=== PATIENT | male | born 1960 | race Caucasian/White ===

== ENCOUNTER 2024-03-23 10:18 | Outpatient (AMB) | payer MEDICARE, MEDICAID, SELFPAY ==
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
--- OUTSIDE RECORDS SUMMARY | 2024-03-23 10:21 | XMS_ITS | Data Portability ---
Author Organization [facility] Address [address] [facility] [place] [address] Care Team Providers Care Fundraising Specialist Name Role Phone REGINALD ARZATE Primary Care Provider [phone] REGINALD ARZATE Referring Provider Assessment No assessment [...] By Organization Details Last Modified Time 02/13/[id number] scan also dean ws a potential median lobe of the prostate [...] an off cystoscopy we will schedule him [email or web address] Not available 02/13/2024 10:49:46 02/27/2024 [id number] You have had an Urgent Care Visit which is designed to address acute issues. It does not represent an exhaustive evaluation of your symptom complex, but is an attempt to treat and manage the most likely cause of your most pressing physical issues. If you are not improved in the time frame that we have discussed, please seek the advice of your PCP who is in a position to order further diagnostic testing and possible specialist consultation. If you are rapidly deteriorating despite the treatment recommendations please do not wait to see your PCP and do proceed to the closest ER where a comprehensive evaluation including consideration to lab and other diagnostic testing as well as consultation is more expeditiously accessible. If you were prescribed medications they have been directly submitted to your pharmacy on file. Please make sure you finish all your medications and if you develop major side effects related to them please do stop taking them and check with your PCP to see if you need to get an alternative medication. If labs or xray were ordered, we will call you with the results if there is any change to your plan of care. You have had an Urgent Care Visit which is designed to address acute issues. It does not represent an exhaustive evaluation of your symptom complex, but is an attempt to treat and manage the most likely cause of your most pressing physical issues. [email or web address] Not available 02/27/2024 13:19:47 Reason for Referral None Reported. Medical Equipment None Reported. Allergies Allergen ID Allergen Name Allergen Category Reaction Reaction Severity Criticality Documentation Date Start Date Code Code System Note Provider Name and Address Organization Details Recorded Time 162813 trazodone medicatio n swelling Not available Not available 02/13/2024 42051 RxNorm priap ism Marc will [facility] 10:34:38 Medications Name Sig Start Date Stop [...] Updated DateTime 4 185.42 cm 30.9 kg/m2 514691. 61 g 73 /min 120 mm[Hg] 74 mm[Hg] Marc vaca [facility] 4 10:33:27 Date Recorded Body height Heart rate Body temperature Oxygen saturation Oxygen saturation in Arterial blood by Pulse oximetry Systolic blood pressure Diastolic blood pressure Provider Name and Address Organization Details Last Updated DateTime 4 185.42 cm 72 /min 98.8 [degF] 96 % 96 % 138 mm[Hg] 70 mm[Hg] Marlyn Davis [facility] 4 13:02:50 Social History None recorded. Functional Status None recorded. Mental Status None recorded. Family History Nothing Reported. Medical History No medical history recorded. Past Encounters Encounter ID Performer Location Encounter Start Date Encounter Closed Date Diagnosis/Indication Diagnosis SNOMED-CT Code Diagnosis ICD10 Code [id number] Severo Baumann MD [facility] [address] [place] [address] 02/13/2024 10:21:35 02/13/2024 11:29:12 Ureteric stone 76571503 N20.1 Lesion of urinary bladder 257924973 N32.9 [id number] Ele Tipton MD [facility] [address] [place] [address] 02/27/2024 12:53:55 02/27/2024 13:23:30 Paresthesia of lower extremity 309058901 R20.2 Health Concerns Section Related Observation LastModified by Organization Detai ls LastModified Time None Recorded Concern Status LastModified by Organization Details LastModified Time None Recorded Advance Directives Directive None Recorded Payers Encounter Date Sequence Insurance Name Policy Number Policy Carter Covered Member ID Carter Member ID Guarantor Name 02/13/2024 2 [place] [facility] Peter Jacksonman [id number] Peter Lewis 02/13/2024 1 MEDICARE B-[place]: [facility] Cyrus Jacob Lewis [id number] Peter Lewis 02/27/2024 2 [place] [facility] Peter Jacksonman [id number] Peter Lewis 02/27/2024 1 MED[place]ARE [place]: [facility] Cyrus Jacob Lewis [id number] [facility] Notes Date Note Type Note Provider Name and Address Organization Details Recorded Time 02/13/2024 text/html This is a 64-year-old white male who went to this emergency room at [facility] and had a CT scan performed for [...] alpha-darío secondary to dizziness. Severo Baumann MD [address] [place] [address], [phone], [facility] 02/13/2024 10:50:06 02/27/2024 text/html 64 yr old male present with numbness in both legs couple of years patient presents with numbness in both legs - states chronic for a couple of years. Pt is here because he wants blood pressures done on his legs. States that he has all sorts of vascular problems, and feels like his Pcp is fluffing him off because they havent done any testing. States recently had an ultrasound of his abdominal aortic aneurysm and they didnt check his legs. Ele Tipton MD [address] [place] [address], [phone], [facility] 02/28/2024 22:43:57
--- OUTSIDE RECORDS SUMMARY | 2024-03-23 10:21 | XMS_ITS | Continuity of Care Document ---
[facility] Organization [facility] Address [address] [place] [address] Care Team Providers Care County Director Name Role Phone REGINALD ARZATE Primary Care Provider [phone] REGINALD ARZATE Referring Provider Assessment No assessment [...] Modified By Organization Details Last Modified Time 02/27/2024 [id number] You have had an Urgent Care Visit [...] Name and Address Organization Details Recorded Time [id number] trazodone medicatio n swelling Not available Not available 02/13/2024 97773 RxNorm priap ism Marc will [facility] 10:34:38 Medications Name Sig Start Date Stop [...] ot Available Vitals Date Recorded Body height Heart rate Body temperature Oxygen saturation Oxygen saturation in Arterial blood by Pulse oximetry Systolic blood pressure Diastolic blood pressure Provider Name and Address Organization Details Last Updated DateTime 4 185.42 cm 72 /min 98.8 [degF] 96 % 96 % 138 mm[Hg] 70 mm[Hg] Marlyn Pabonclaudine [facility] 13:02:50 Social History None recorded. Functional Status None recorded. Mental Status None recorded. Family History Nothing Reported. Medical History No medical history recorded. Past Encounters Encounter ID Performer Location Encounter Start Date Encounter Closed Date Diagnosis/Indication Diagnosis SNOMED-CT Code Diagnosis ICD10 Code [id number] Severo Baumann MD [facility] [address] [place] [address] 02/13/2024 10:21:35 02/13/2024 11:29:12 Ureteric stone 57350232 N20.1 Lesion of urinary bladder 322130525 N32.9 [id number] Ele Tipton MD [facility] [address] [place] [address] 02/27/2024 12:53:55 02/27/2024 13:23:30 Paresthesia of lower extremity 717760904 R20.2 Health Concerns Section Related Observation LastModified by Organization Detai ls LastModified Time None Recorded Concern Status LastModified by Organization Details LastModified Time None Recorded Payers Encounter Date Sequence Insurance Name Policy Number Policy Carter Covered Member ID Carter Member ID Guarantor Name 02/27/2024 2 [place] Peter Lewis [id number] Peter Lewis 02/27/2024 1 MEDICARE B[place]: [employer] Cyrus Lewis [id number] Peter Lewis Notes Date Note Type Note Provider Name and Address Organization Details Recorded Time 02/27/2024 text/html 64 yr old male present [...] didnt check his legs. Ele Tipton MD [address] [place] [address], [phone], [facility] 02/28/2024 22:43:57
--- NOTE | 2024-03-23 10:24 | MHC.OFFVIS ---
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 Pt states that he had a recent CTA Abd/pelvis 12/22/23 @ [facility] (for kidney stones and there was some new vascular findings). Pt states that he has bilateral LE numbness and weakness, gets loss of balance. Pt states that is w/ or w/o ambulation. 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 He appears that he is lost about his generalized care. Apparently he had endovascular aneurysm repair performed at [facility] several years prior. He has been complaining about lower extremity pain and discomfort and was unclear what the etiology of that is. Upon discussion with him he does have a prior history adrenal cancer. In addition he has history of spinal stenosis. He most recently had undergone CT scan at [facility] on 12/22/2023. He now presents to us for vascular evaluation. Of note he smokes between 1-2 packs per day. He is not a diabetic. He is being maintained on aspirin statin and Coumadin. [facility] Social History (Updated 03/23/24 @ 10:34 by RA Hartman) Cigarettes Per Day: 20 Review of Systems Const All systems reviewed & are unremarkable except as noted in HPI and below Reports no additional complaints ENT Reports Normal hearing present Card Denies chest pain, Denies chest pain at rest, Denies chest pain with activity and Denies pedal edema Resp Denies cough GI Denies abdominal pain Musc Denies abnormal gait, Denies muscle cramps and Denies radiating pain into limb Skin/Breast Denies skin ulcer and Denies wounds Neuro Reports Normal hearing present and Denies abnormal gait Psych Reports no additional complaints Physical Exam Const General: cooperative, healthy appearing and comfortable Orientation/consciousness: oriented to person, oriented to place and oriented to time HEENT Head: Yes normal to inspection Neck Neck: Yes normal visual inspection Carotids: no bruits Chest Chest palpation & inspection: normal inspection of the chest Resp Effort & Inspection: normal respiratory effort and able to speak in complete sentences Auscultation: clear to auscultation bilaterally, no crackles, no rales, no rhonchi and no wheezes Cardio Other: Faintly palpable dorsalis pedis pulse Rate: regular rate Rhythm: regular rhythm Heart sounds: S1 normal heart sound present and S2 normal heart sound present Bruits: no carotid bruits Peripheral pulses: Peripheral pulses 2+ throughout GI Inspection: Yes normal to inspection Skin Wounds: no wounds Hair: normal Neuro General: oriented to person, oriented to place and oriented to time Cranial nerves: Yes CN's II-XII intact bilaterally and Yes Normal hearing present Cognition (Neuro): normal cognition Motor exam (neuro): 5/5 motor strength present throughout Extrem Other: venous exam: No significant superficial varicosities or spider telangiectasias, minimal edema General: No clubbing, No cyanosis and No edema Psych Appearance: grossly normal Mental Status: mental status grossly normal Speech and movement: Normal speech and movement present Assessment & Plan Assessment & Plan (1) AAA (abdominal aortic aneurysm): Comment: Endovascular repair at [facility] by Dr. Joseline Mancera Code(s): I71.40 - Abdominal aortic aneurysm, without rupture, unspecified Category: Medical Qualifiers: Abdominal aorta location: infrarenal aorta Presence of rupture: without rupture Qualified Code(s): I71.43 - Infrarenal abdominal aortic aneurysm, without rupture Plan: Patient will require annual surveillance regarding this. It is unclear if he is going to get follow-up at [facility] or he would like to transfer his care here. I will readdress this at the next visit. Of note CT scan from 12/22/2023 demonstrates appropriate placement on written report. We did discuss risk factor modification in particular smoking cessation. (2) PAD (peripheral artery disease): Code(s): I73.9 - Peripheral vascular disease, unspecified Category: Medical Plan: Unclear etiology of lower extremity pain. It does not appear to be vascular in nature as he does have faintly palpable pulses. I did take the liberty of ordering noninvasive arterial testing to rule that out. Does have some hip pain in particular joint pain and may be an element of arthritis in addition he does have a history of spinal stenosis that may be contributing to this. This was all explained in detail with the patient. Once again we have taken the liberty of ordering noninvasive arterial testing and he will follow up with us after that. Thank you for allowing us to assist in his care. If there are any questions or concerns please do not hesitate to contact us. Orders: Orders US arterial duplex LE BI 1 Week I73.9 - Peripheral vascular disease, unspecified Coding Level of Care Code New Pt Level 4 (34972) Diagnoses Infrarenal abdominal aortic aneurysm (AAA) without rupture I71.43 Abdominal aorta location: infrarenal aorta Presence of rupture: without rupture PAD (peripheral artery disease) I73.9
== END 2024-03-23 11:15 | disposition home or self-care (01) ==
PROVIDERS: Visit Provider Surgery Vascular Surgery
DX: I71.43 Infrarenal abdominal aortic aneurysm, without rupture (principal); I73.9 Peripheral vascular disease, unspecified
CPT/HCPCS: 99204

== ENCOUNTER → 2024-03-23 10:18 | Outpatient (BNVA) | payer MEDICARE, MEDICAID, SELFPAY | PROVIDERS: Visit Provider Surgery Vascular Surgery | DX: I71.43 Infrarenal abdominal aortic aneurysm, without rupture (principal); I73.9 Peripheral vascular disease, unspecified | CPT/HCPCS: 99202 ==

== ENCOUNTER → 2024-05-06 12:57 | Outpatient (BNV) | payer MEDICARE, MEDICAID, SELFPAY | PROVIDERS: Visit Provider Radiology Diagnostic Radiology | DX: I73.9 Peripheral vascular disease, unspecified (principal) | CPT/HCPCS: 93922; 93925 ==

== ENCOUNTER 2024-06-01 11:19 | Outpatient (AMB) | payer MEDICARE, MEDICAID, SELFPAY ==
--- NOTE | 2024-06-01 11:17 | A.OFFVIS_ITS ---
Intake Visit Reasons: follow up Arterial US 05/06/24 Intake Note: follow up Arterial US 05/06/24. Pt states he has groin pain where he has hx of graft placement. Services Account Manager Required: No Accompanied by: Self / Same As Patient Allergies trazodone Allergy (Intermediate, Verified 06/01/24 11:26) Unknown HPI HPI follow up Arterial US 05/06/24: Details: Very complex 64-year-old gentleman presents for follow-up regarding peripheral vascular disease. He had originally undergone endovascular aortic aneurysm at [facility]. This has been several years prior and he had been following up regarding that with them. Most recently he had more inguinal pain. Upon further discussion with him he reports that it was more so the hip and joint pain that has been a source of discomfort for him. Was concerned that it was peripheral vascular disease and was concerning for where the stent went down to into his groin. He is able to ambulate distances without any difficulty. He has undergone noninvasive arterial testing. He now presents for follow-up with noninvasive testing. He is being maintained on aspirin and high-dose statin. [facility] Social History Cigarettes Per Day: 20 Review of Systems Const All systems reviewed & are unremarkable except as noted in HPI and below Reports no additional complaints ENT Reports Normal hearing present Card Denies chest pain, Denies chest pain at rest, Denies chest pain with activity and Denies pedal edema Resp Denies cough GI Denies abdominal pain Musc Denies abnormal gait, Denies muscle cramps and Denies radiating pain into limb Skin/Breast Denies skin ulcer and Denies wounds Neuro Reports Normal hearing present and Denies abnormal gait Psych Reports no additional complaints Physical Exam Const General: cooperative, healthy appearing and comfortable Orientation/consciousness: oriented to person, oriented to place and oriented to time HEENT Head: Yes normal to inspection Neck Neck: Yes normal visual inspection Carotids: no bruits Chest Chest palpation & inspection: normal inspection of the chest Resp Effort & Inspection: normal respiratory effort and able to speak in complete sentences Auscultation: clear to auscultation bilaterally, no crackles, no rales, no rhonchi and no wheezes Cardio Rate: regular rate Rhythm: regular rhythm Heart sounds: S1 normal heart sound present and S2 normal heart sound present Bruits: no carotid bruits Peripheral pulses: Peripheral pulses 2+ throughout GI Inspection: Yes normal to inspection Skin Wounds: no wounds Hair: normal Neuro General: oriented to person, oriented to place and oriented to time Cranial nerves: Yes CN's II-XII intact bilaterally and Yes Normal hearing present Cognition (Neuro): normal cognition Motor exam (neuro): 5/5 motor strength present throughout Extrem Other: venous exam: No significant superficial varicosities or spider telangiectasias, minimal edema General: No clubbing, No cyanosis and No edema Psych Appearance: grossly normal Mental Status: mental status grossly normal Speech and movement: Normal speech and movement present Results Reviewed Results Reviewed: Noninvasive testing dated 05/06/2024 demonstrates DYAN on the right of 1.03 and on the left of 0.86. Assessment & Plan Assessment & Plan (1) AAA (abdominal aortic aneurysm): Comment: Endovascular repair at [facility] by Dr. Joseline Mancera Code(s): I71.40 - Abdominal aortic aneurysm, without rupture, unspecified Category: Medical Qualifiers: Abdominal aorta location: infrarenal aorta Presence of rupture: without rupture Qualified Code(s): I71.43 - Infrarenal abdominal aortic aneurysm, without rupture Plan: Follow-up at [facility] (2) PAD (peripheral artery disease): Code(s): I73.9 - Peripheral vascular disease, unspecified Category: Medical Plan: In terms of peripheral vascular disease it appears to be stable. I did provide a fair amount of reassurance that his arterial status was within normal limits. In addition I did education about the hip and groin pain and the possibility that this may be more arthritic in nature. I also provided education regarding his aortic aneurysm and how far the limbs of the stent go down. I did explain to him that they do not go down to the groin and that would not be the source of his issues. He did appreciate my explanations and did seem to comprehend what I told him. In terms of peripheral vascular standpoint he is stable and will follow up with us on an as-needed basis as he does follow-up with [facility] regarding his aortic aneurysm. Thank you for allowing us to assist in his care. If there are any questions or concerns please do not hesitate to contact us. Coding Level of Care Code Est Pt Level 4 (73514) Diagnoses Infrarenal abdominal aortic aneurysm (AAA) without rupture I71.43 Abdominal aorta location: infrarenal aorta Presence of rupture: without rupture PAD (peripheral artery disease) I73.9
--- OUTSIDE RECORDS SUMMARY | 2024-06-01 13:51 | XMS_ITS | Encounter Summary ---
Author Organization [facility] Address [address] [place] [address] Care Team Providers Care Automatic Shirring Machine Operator Name Role Phone Jolanta Morrell MD Primary Care Provider +1- [phone] Encounter Details Date Type Department Care Team (Late st Contact Info) Description 11/21/2016 Orders Only [facility] [address] [address] Jolanta Morrell MD [address] [place] [address] Social History Tobacco Use Types Packs/Day Years Used Date Smoking Tobacco: Never Assessed Sex and Gender Information Value Date Recorded Sex Assigned at Male 05/15/2023 10:48 AM EST Legal Sex Male 5:53 PM EDT Gender Identity Not on file Sexual Orientation Not on file documented as of this encounter Plan of Treatment Upcoming Encounters Date Type Department Care Team (Late st Contact Info) Description 08/04/2024 1:00 PM EDT Appointment [facility] Otolaryngology Clinic [address] [place] [address] Subcontract Administrator: Kal Alicea PA [address] [place] [address] 09/21/2024 1:00 PM EDT Follow-Up [facility] Anticoagulation Clinic [address] [place] [address] Subcontract Administrator: Lisy Varmat, ROLL CUTTER [address] [place] [address] 02/24/2025 1:00 PM EST Appointment [facility] Vascular Lab [address] [place] [address] 02/24/2025 2:00 PM EST Follow-Up [facility] Building Vascular Surgery [address] [place] [address] Subcontract Administrator: Joseline May MD [address] [place] [address] 03/29/2025 10:00 AM EST Follow-Up [facility] Eye [address] [address] Sebastian Oneal MD [address] [place] [address] documented as of this encounter Visit Diagnoses Not on filedocumented in this encounter Additional Health Concerns Infection Onset Date Last Indicated Resolved Time COVID-19 - Suspected infection 07/06/2019 07/06/2019 07/07/2019 5:03 PM EDT documented as of this encounter Care Teams Automatic Shirring Machine Operator Relationship Specialty Start Date End Date Jolanta Morrell MD [address] [place] [address] PCP - General Family Medicine 10/28/18 documented as of this encounter
--- OUTSIDE RECORDS SUMMARY | 2024-06-01 13:51 | XMS_ITS | Encounter Summary ---
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 No 02/02/2024 Hunger Vital Sign Answer Date Recorded Within the past 12 months, y ou worried that your food would run out before you got the money to buy more. Never true 02/02/20 24 Within the past 12 months, t he food you bought just didn't last and you didn't have money to get more. Never true 02/02/2024 Transportation Answer Date Recorded In the past 12 months, has l ack of reliable transportation kept you from medical appointments, meetings, work or from getting things needed for daily living? No 02/02/2024 Housing Answer Date Recorded Housing Risk Low 2 02/02/2024 Housing Risk Medium Not on file 02/02/2024 Housing Risk High Not on file 02/02/2024 What is your living situation today? [facility] 02/02/2024 Sex and Gender Information Value Date Recorded Sex Assigned at Male 05/15/2023 10:48 AM EST Legal Sex Male 5:53 PM EDT Gender Identity Not on file Sexual Orientation Not on file Occupation Industry Job Start Date Job End Date retired Not on file Not on file Not on file documented as of this encounter Functional Status * Does this person have serious difficulty walking or climbing stairs? Answer Date of Assessment Author Yes 01/21/2017 12:33 PM EDT documented as of this encounter Plan of Treatment Upcoming Encounters Date Type Department Care Team (Late st Contact Info) Description 08/04/2024 1:00 PM EDT Appointment [facility] Otolaryngology Clinic [address] [place] [address] Plasterer Spot: Kal Alicea PA [address] [place] [address] 09/21/2024 1:00 PM EDT Follow-Up [facility] Anticoagulation Clinic [address] [place] [address] Plasterer Spot: Lisy Varma NP [address] [place] [address] 02/24/2025 1:00 PM EST Appointment [facility] ACC Vascular Lab [address] [place] [address] 02/24/2025 2:00 PM EST Follow-Up [facility] ACC Building Vascular Surgery [address] [place] [address] Plasterer Spot: Joseline May MD [address] [place] [address] 03/29/2025 10:00 AM EST Follow-Up [address] [address] Sebastian Oneal MD [address] [place] [address] documented as of this encounter Visit Diagnoses Diagnosis Paroxysmal atrial fibrillation (HCC)- Primary Atrial fibrillation [facility] (current) use of anticoagulants Long-term (current) use of anticoagulants documented in this encounter Care Teams Stitch Bonding Machine Tender Relationship Specialty Start Date End Date Jolanta Morrell MD [address] [place] [address] PCP - General Family Medicine 10/28/18 documented as of this encounter
--- OUTSIDE RECORDS SUMMARY | 2024-06-01 13:51 | XMS_ITS | Encounter Summary ---
Author Organization [facility] Address [address] [place] [address] Care Team Providers Care Regional Forester Name Role Phone Jolanta Morrell MD Primary Care Provider +1- [phone] Reason for Visit * Reason Comments Med Refill Encounter Details Date Type Department Care Team (Late st Contact Info) Description 05/28/2024 Refill [facility] 4th floor Cardiology Medicine [address] [place] [address] Technical Account Manager: Mini Chapman MD [address] [place] [address] [place] [address] Allergic rhinitis Social History Tobacco Use Types Packs/Day Years Used Date Smoking Tobacco: Every Day Cigarettes 2 45 Smokeless Tobacco: Never Comments:2-3 ppd every day-r olls own cigarettes Alcohol Use Standard Drinks/Week Comments Not Currently 0 (1 standard drink = 0.6 oz pur e alcohol) 1982 [facility] Utilities Answer Date Recorded In the past 12 months has [employer], gas, oil, or water [employer] threatened to shut off services in your [...] Info) Description 08/04/2024 1:00 PM EDT Appointment [facility] Otolaryngology Clinic [address] [place] [address] Technical Account Manager: Kal Alicea PA [address] [place] [address] 09/21/2024 1:00 PM EDT Follow-Up [facility] Anticoagulation Clinic [address] [place] [address] Technical Account Manager: Lisy Varma NP [address] [place] [address] 02/24/2025 1:00 PM EST Appointment [facility] ACC Vascular Lab [address] [place] [address] 02/24/2025 2:00 PM EST Follow-Up [facility] ACC Building Vascular Surgery [address] [place] [address] Technical Account Manager: Joseline May MD [address] [place] [address] 03/29/2025 10:00 AM EST Follow-Up [facility] Eye [address] [address] Sebastian Oneal MD [address] [place] [address] documented as of this encounter Visit Diagnoses Diagnosis Allergic rhinitis Allergic rhinitis, cause unspecified documented in this encounter Care Teams Regional Forester Relationship Specialty Start Date End Date Jolanta Morrell MD [address] [place] [address] PCP - General Family Medicine 10/28/18 documented as of this encounter
--- OUTSIDE RECORDS SUMMARY | 2024-06-01 13:51 | XMS_ITS | Encounter Summary ---
Author Organization [facility] Address [address] [place] [address] Care Team Providers Care Insurance Policy Issue Clerk Name Role Phone Jolanta Morrell MD Primary Care Provider +1- [phone] Encounter Details Date Type Department Care Team (Late st Contact Info) Description 05/25/2024 Documentation [facility] Anticoagulation Clinic [address] [place] [address] Public Health Representative: Marcos Yee MD [place] [address] [place] [address] Social History Tobacco Use Types Packs/Day Years Used Date Smoking Tobacco: Every Day Cigarettes 2 45 Smokeless Tobacco: Never Comments:2-3 ppd every day-r olls own cigarettes Alcohol Use Standard Drinks/Week Comments Not Currently 0 (1 standard drink = 0.6 oz pur e alcohol) 1982 [facility] Utilities Answer Date Recorded In the past 12 months has e [employer], gas, oil, or water [employer] threatened to shut off services in your [...] PM EDT documented as of this encounter Progress Notes * Marcos Art MD [place] - 05/25/2024 12:00 AM EST Anticoagulation Progress Report May 25, 2024 Name: CYRUS LEWIS Reason for Treatment: Atrial fibrillation paroxysmal INR Range: 2.0-3.0 Date: 2024-05-25 08:32 Location: Anticoagulation Center, [facility] INR: 2.50 Tablet Strength: 5 mg Next INR: 7 days 2024-06-01 Progress Note: Home INR Signature Note: Assessment by Sharon Torres RN; dosage by Sharon Torres RN Provider Review/Interpretation/Management Note: INR and warfarin dosage reviewed by Mady House NP (Mady House NP, 05/25/24 08:38) Dosage Out: :Newby-2.5mg:M-5mg:T-2.5mg:W-5mg:Th-2.5mg:F-5mg:Sa-2.5mg: documented in this encounter Plan of Treatment Upcoming Encounters Date Type Department Care Team (Late st Contact Info) Description 08/04/2024 1:00 PM EDT Appointment [facility] Otolaryngology Clinic [address] [place] [address] Public Health Representative: Alejandra Barnes, LEE Camacho [address] [place] [address] 09/21/2024 1:00 PM EDT Follow-Up [facility] Anticoagulation Clinic [address] [place] [address] Public Health Representative: Lisy Varma NP [address] [place] [address] 02/24/2025 1:00 PM EST Appointment [facility] ACC Vascular Lab [address] [place] [address] 02/24/2025 2:00 PM EST Follow-Up [facility] ACC Building Vascular Surgery [address] [place] [address] Public Health Representative: Joseline May MD [address] [place] [address] 03/29/2025 10:00 AM EST Follow-Up [facility] Eye Center [address] [place] [address] Sebastian Oneal MD [address] [place] [address] documented as of this encounter Visit Diagnoses Not on filedocumented in this encounter Care Teams Insurance Policy Issue Clerk Relationship Specialty Start Date End Date Jolanta Morrell MD [address] [place] [address] PCP - General Family Medicine 10/28/18 documented as of this encounter
--- OUTSIDE RECORDS SUMMARY | 2024-06-01 13:51 | XMS_ITS | Encounter Summary ---
Author Organization [facility] Address [address] [place] [address] Care Team Providers Care College And Career Counselor Name Role Phone Jolanta Morrell MD Primary Care Provider +1- [phone] Encounter Details Date Type Department Care Team (Late st Contact Info) Description 06/22/2020 Orders Only [facility] XRay [address] [place], [place] [phone] Terry Helm MD [address] [place], [place] [phone] Social History Tobacco Use Types Packs/Day Years Used Date Smoking Tobacco: Every Day Cigarettes 3 45 Smokeless Tobacco: Never Comments:2-3 ppd every day Alcohol Use Standard Drinks/Week Comments Not Currently 0 (1 standard drink = 0.6 oz pur e alcohol) 1983 Sex and Gender Information Value Date Recorded [...] Info) Description 08/04/2024 1:00 PM EDT Appointment [facility] Otolaryngology Clinic [address] [place] [address] Tube Lancer: Alejandra Barnes, LEE Camacho [address] [place] [address] 09/21/2024 1:00 PM EDT Follow-Up [facility] Anticoagulation Clinic [address] [place] [address] Tube Lancer: Lisy Varma NP [address] [place] [address] 02/24/2025 1:00 PM EST Appointment [facility] ACC Vascular Lab [address] [place] [address] 02/24/2025 2:00 PM EST Follow-Up [facility] ACC Building Vascular Surgery [address] [place] [address] Tube Lancer: Joseline May MD [address] [place] [address] 03/29/2025 10:00 AM EST Follow-Up [facility] Eye Center [address] [place] [address] Sebastian Oneal MD [address] [place] [address] documented as of this encounter Visit Diagnoses Not on filedocumented in this encounter Care Teams College And Career Counselor Relationship Specialty Start Date End Date Jolanta Morrell MD [address] [place] [address] PCP - General Family Medicine 10/28/18 documented as of this encounter
--- OUTSIDE RECORDS SUMMARY | 2024-06-01 13:51 | XMS_ITS | Encounter Summary ---
Author Organization [facility] Address [address] [place] [address] Care Team Providers Care Cigar Wrapper Tender Automatic Name Role Phone Jolanta Morrell MD Primary Care Provider +1- [phone] Encounter Details Date Type Department Care Team (Late st Contact Info) Description 02/15/2022 Orders Only [facility] Ultrasound [address] [place] [address] Slade Ayers MD [address] [place], [place] [phone] Social History Tobacco Use Types Packs/Day Years [...] Info) Description 08/04/2024 1:00 PM EDT Appointment [facility] Otolaryngology Clinic [address] [place] [address] Laboratory Sampler: Alejandra Barnes, LEE Camacho [address] [place] [address] 09/21/2024 1:00 PM EDT Follow-Up [facility] Anticoagulation Clinic [address] [place] [address] Laboratory Sampler: Lisy Varma NP [address] [place] [address] 02/24/2025 1:00 PM EST Appointment [facility] ACC Vascular Lab [address] [place] [address] 02/24/2025 2:00 PM EST Follow-Up [facility] ACC Building Vascular Surgery [address] [place] [address] Laboratory Sampler: Joseline May MD [address] [place] [address] 03/29/2025 10:00 AM EST Follow-Up [facility] Eye Center [address] [place] [address] Sebastian Oneal MD [address] [place] [address] documented as of this encounter Visit Diagnoses Not on filedocumented in this encounter Care Teams Cigar Wrapper Tender Automatic Relationship Specialty Start Date End Date Jolanta Morrell MD [address] [place] [address] PCP - General Family Medicine 10/28/18 documented as of this encounter
--- OUTSIDE RECORDS SUMMARY | 2024-06-01 13:51 | XMS_ITS | Encounter Summary ---
Author Organization [facility] Address [address] [place] [address] Care Team Providers Care Elementary Math Tutor Name Role Phone Jolanta Morrell MD Primary Care Provider +1- [phone] Encounter Details Date Type Department Care Team (Late st Contact Info) Description 03/12/2023 Orders Only [facility] XRay [address] [place] [address] Karthik Eason MD [address] [place], [place] [phone] Social History Tobacco Use Types Packs/Day Years [...] Info) Description 08/04/2024 1:00 PM EDT Appointment [facility] Otolaryngology Clinic [address] [place] [address] Pulmonary Fellow: Kal Alicea, PA [address] [place] [address] 09/21/2024 1:00 PM EDT Follow-Up [facility] Anticoagulation Clinic [address] [place] [address] Pulmonary Fellow: Lisy Varma NP [address] [place] [address] 02/24/2025 1:00 PM EST Appointment [facility] ACC Vascular Lab [address] [place] [address] 02/24/2025 2:00 PM EST Follow-Up [facility] ACC Building Vascular Surgery [address] [place] [address] Pulmonary Fellow: Joseline May MD [address] [place] [address] 03/29/2025 10:00 AM EST Follow-Up [facility] Eye Center [address] [place] [address] Sebastian Oneal MD [address] [place] [address] documented as of this encounter Visit Diagnoses Not on filedocumented in this encounter Care Teams Elementary Math Tutor Relationship Specialty Start Date End Date Jolanta Morrell MD [address] [place] [address] PCP - General Family Medicine 10/28/18 documented as of this encounter
--- OUTSIDE RECORDS SUMMARY | 2024-06-01 13:51 | XMS_ITS | Encounter Summary ---
Author Organization [facility] Address [address] [place] [address] Care Team Providers Care Tester Sound Name Role Phone Jolanta Morrell MD Primary Care Provider +1- [phone] Encounter Details Date Type Department Care Team (Late st Contact Info) Description 04/02/2023 Orders Only [facility] [address] [place] [address] Yohana Snow NP [address] [place] [address] Social History Tobacco Use Types Packs/Day Years [...] Info) Description 08/04/2024 1:00 PM EDT Appointment [facility] Otolaryngology Clinic [address] [place] [address] Title I Math Tutor: Alejandra Barnes, LEE Camacho [address] [place] [address] 09/21/2024 1:00 PM EDT Follow-Up [facility] Anticoagulation Clinic [address] [place] [address] Title I Math Tutor: Lisy Varma NP [address] [place] [address] 02/24/2025 1:00 PM EST Appointment [facility] ACC Vascular Lab [address] [place] [address] 02/24/2025 2:00 PM EST Follow-Up [facility] ACC Building Vascular Surgery [address] [place] [address] Title I Math Tutor: Joseline May MD [address] [place] [address] 03/29/2025 10:00 AM EST Follow-Up [facility] Eye Center [address] [place] [address] Sebastian Oneal MD [address] [place] [address] documented as of this encounter Visit Diagnoses Not on filedocumented in this encounter Care Teams Tester Sound Relationship Specialty Start Date End Date Jolanta Morrell MD [address] [place] [address] PCP - General Family Medicine 10/28/18 documented as of this encounter
--- OUTSIDE RECORDS SUMMARY | 2024-06-01 13:51 | XMS_ITS | Encounter Summary ---
Author Organization [facility] Address [address] [place] [address] Care Team Providers Care Studio Control Operator Name Role Phone Jolanta Morrell MD Primary Care Provider +1- [phone] Encounter Details Date Type Department Care Team (Late st Contact Info) Description 02/18/2022 Orders Only [facility] Interventional Radiology [address] [place] [address] [phone] Edenilson Kapoor MD [address] [place] [address] [phone] Social History Tobacco Use Types Packs/Day Years [...] Info) Description 08/04/2024 1:00 PM EDT Appointment [facility] [address] [place] [address] [phone] Anode Crew Supervisor: Alejandra Barnes, LEE Camacho [address] [place] [address] 09/21/2024 1:00 PM EDT Follow-Up [facility] Anticoagulation [facility] [address] [place] [address] Anode Crew Supervisor: Lisy Varma NP [address] [place] [address] 8[address] 02/24/2025 1:00 PM EST Appointment [facility] ACC Vascular Lab [address] [place] [address] 02/24/2025 2:00 PM EST Follow-Up [facility] ACC Building Vascular Surgery [address] [place] [address] 08499 Anode Crew Supervisor: Joseline May MD [address] [place] [address] 03/29/2025 10:00 AM EST Follow-Up [facility] [address] [place] [address] Sebastian Oneal MD [address] [place] [address]12 documented as of this encounter Visit Diagnoses Not on filedocumented in this encounter Care Teams Studio Control Operator Relationship Specialty Start Date End Date Jolanta Morrell MD [address] [place] [address] PCP - General Family Medicine 10/28/18 documented as of this encounter
--- OUTSIDE RECORDS SUMMARY | 2024-06-01 13:51 | XMS_ITS | Encounter Summary ---
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 Social History Tobacco Use Types Packs/Day Years Used Date Smoking Tobacco: Every Day Cigarettes 2 45 Smokeless Tobacco: Never Comments:2-3 ppd every day-r olls own cigarettes Alcohol Use Standard Drinks/Week Comments Not Currently 0 (1 standard drink = 0.6 oz pur e alcohol) 1982 [facility] Utilities Answer Date Recorded In the past 12 months has th e [employer], gas, oil, or water [employer] threatened to shut off services in your [...] Info) Description 08/04/2024 1:00 PM EDT Appointment [facility] Otolaryngology Clinic [address] [place] [address] Development Director: Kal Alicea PA [address] [place] [address] 09/21/2024 1:00 PM EDT Follow-Up [facility] Anticoagulation [facility] [address] [place] [address] Development Director: Lisy Varma NP [address] [place] [address] 02/24/2025 1:00 PM EST Appointment [facility] ACC Vascular Lab [address] [place] [address] 02/24/2025 2:00 PM EST Follow-Up [facility] ACC Building Vascular Surgery [address] [place] [address] Development Director: Joselien May MD [address] [place] [address] 03/29/2025 10:00 AM EST Follow-Up [address] [address] Sebastian Oneal MD [address] [place] [address] documented as of this encounter Visit Diagnoses Diagnosis Paroxysmal atrial fibrillation (HCC)- Primary Atrial fibrillation intermediate (current) use of anticoagulants Long-term (current) use of anticoagulants documented in this encounter Care Teams Clerk Secretary Relationship Specialty Start Date End Date Jolanta Morrell MD [address] [place] [address] PCP - General Family Medicine 10/28/18 documented as of this encounter
--- OUTSIDE RECORDS SUMMARY | 2024-06-01 13:51 | XMS_ITS | Encounter Summary ---
Author Organization [facility] Address [address] [place] [address] Care Team Providers Care Ocularist Name Role Phone Jolanta Morrell MD Primary Care Provider +1- [phone] Encounter Details Date Type Department Care Team (Late st Contact Info) Description 05/18/2024 Documentation [facility] Anticoagulation Clinic [address] [place] [address] Education And Outreach Coordinator: Marcos Yee MD MS [address] [place] [address] Social History Tobacco Use Types Packs/Day Years Used Date Smoking Tobacco: Every Day Cigarettes 2 45 Smokeless Tobacco: Never Comments:2-3 ppd every day-r olls own cigarettes Alcohol Use Standard Drinks/Week Comments Not Currently 0 (1 standard drink = 0.6 oz pur e alcohol) 1982 [facility] Utilities Answer Date Recorded In the past 12 months has e [employer], gas, oil, or water [employer] threatened to shut off services in your [...] Notes * Marcos Art MD MS - 05/18/2024 12:00 AM EST Anticoagulation Progress Report May 18, 2024 Name: LEORA LEWIS Reason for Treatment: Atrial fibrillation paroxysmal INR Range: 2.0-3.0 Date: 2024-05-18 08:12 Location: Anticoagulation Center, [facility] INR: 2.80 Tablet Strength: 5 mg Next INR: 7 days 2024-05-25 Progress Note: Home monitor Signature Note: Assessment by Hilda Call NP; dosage by Hilda Call NP Dosage Out: :Newby-2.5mg:M-5mg:T-2.5mg:W-5mg:Th-2.5mg:F-5mg:Sa-2.5mg: documented in this encounter Plan of Treatment Upcoming Encounters Date Type Department Care Team (Late st Contact Info) Description 08/04/2024 1:00 PM EDT Appointment [facility] Otolaryngology Clinic [address] [place] [address] Education And Outreach Coordinator: Alejandra Barnes, LEE Camacho [address] [place] [address] 09/21/2024 1:00 PM EDT Follow-Up [facility] Anticoagulation [facility] [address] [place] [address] Education And Outreach Coordinator: Lisy Varma NP [address] [place] [address] 02/24/2025 1:00 PM EST Appointment [facility] ACC Vascular Lab [address] [place] [address] 02/24/2025 2:00 PM EST Follow-Up [facility] ACC Building Vascular Surgery [address] [place] [address] Education And Outreach Coordinator: Joseline May MD [address] [place] [address] 03/29/2025 10:00 AM EST Follow-Up [facility] [address] [place] [address] Sebastian Oneal MD [address] [place] [address] documented as of this encounter Visit Diagnoses Not on filedocumented in this encounter Care Teams Ocularist Relationship Specialty Start Date End Date Jolanta Morrell MD [address] [place] [address] PCP - General Family Medicine 10/28/18 documented as of this encounter
--- OUTSIDE RECORDS SUMMARY | 2024-06-01 13:51 | XMS_ITS | Encounter Summary ---
Author Organization [facility] Address [address] [place] [address] Care Team Providers Care Cleat Feeder Name Role Phone Jolanta Morrell MD Primary Care Provider +1- [phone] Encounter Details Date Type Department Care Team (Late st Contact Info) Description 05/03/2024 Telephone [facility] Primary Care [address] [place] [address] Jolanta Morrell MD [address] [place] [address] Social History Tobacco Use Types Packs/Day Years Used Date Smoking Tobacco: Every Day Cigarettes 2 45 Smokeless Tobacco: Never Comments:2-3 ppd every day-r olls own cigarettes Alcohol Use Standard Drinks/Week Comments Not Currently 0 (1 standard drink = 0.6 oz pur e alcohol) 1982 [facility] Utilities Answer Date Recorded In the past 12 months has e [employer], gas, oil, or water [employer] threatened to shut off services in your [...] PM EDT documented as of this encounter Miscellaneous Notes * Telephone Encounter - Rina Fallon - 05/03/2024 2:21 PM EST Yes just terratamie, his gift of beth for today * Telephone Encounter - Rina Fallon - 05/03/2024 10:20 AM EST Peter has stopped taking icrosusatvatic and calcim 40ml gone bck to atorvastin documented in this encounter Plan of Treatment Upcoming Encounters Date Type Department Care Team (Late st Contact Info) Description 08/04/2024 1:00 PM EDT Appointment [facility] Otolaryngology Clinic [address] [place] [address] Jet Ski Mechanic: Kal Alicea PA [address] [place] [address] 09/21/2024 1:00 PM EDT Follow-Up [facility] Anticoagulation Clinic [address] [place] [address] Jet Ski Mechanic: Lisy Varma NP [address] [place] [address] 02/24/2025 1:00 PM EST Appointment [facility] ACC Vascular Lab [address] [place] [address] 02/24/2025 2:00 PM EST Follow-Up [facility] Building Vascular Surgery [address] [place] [address] Jet Ski Mechanic: Joseline May MD [address] [place] [address] 03/29/2025 10:00 AM EST Follow-Up [facility] [place] [address] [place] [address] Sebastian Oneal MD [address] [place] [address] documented as of this encounter Visit Diagnoses Not on filedocumented in this encounter Care Teams Cleat Feeder Relationship Specialty Start Date End Date Jolanta Morrell MD [address] [place] [address] PCP - General Family Medicine 10/28/18 documented as of this encounter
--- OUTSIDE RECORDS SUMMARY | 2024-06-01 13:51 | XMS_ITS | Encounter Summary ---
Author Organization [facility] Address [address] [place] [address] Care Team Providers Care Cook Barbecue Name Role Phone Jolanta Morrell MD Primary Care Provider +1- [phone] Encounter Details Date Type Department Care Team (Late st Contact Info) Description 11/07/2016 Orders Only [facility] [address] [address] Tom Daugherty MD [address] [place] [address] Social History Tobacco Use Types Packs/Day Years [...] Info) Description 08/04/2024 1:00 PM EDT Appointment [facility] Otolaryngology Clinic [address] [place] [address] Airport Refueling Handler: Kal Alicea PA [address] [place] [address] 09/21/2024 1:00 PM EDT Follow-Up [facility] Anticoagulation Clinic [address] [place] [address] Airport Refueling Handler: Lisy Varmat, FRENCH TRANSLATOR [address] [place] [address] 02/24/2025 1:00 PM EST Appointment [facility] Vascular Lab [address] [place] [address] 02/24/2025 2:00 PM EST Follow-Up [facility] Building Vascular Surgery [address] [place] [address] Airport Refueling Handler: Joseline May MD [address] [place] [address] 03/29/2025 10:00 AM EST Follow-Up [facility] Eye [address] [address] Sebastian Oneal MD [address] [place] [address] documented as of this encounter Visit Diagnoses Not on filedocumented in this encounter Additional Health Concerns Infection Onset Date Last Indicated Resolved Time COVID-19 - Suspected infection 07/06/2019 07/06/2019 07/07/2019 5:03 PM EDT documented as of this encounter Care Teams Cook Barbecue Relationship Specialty Start Date End Date Jolanta Morrell MD [address] [place] [address]259 PCP - General Family Medicine 10/28/18 documented as of this encounter
--- OUTSIDE RECORDS SUMMARY | 2024-06-01 13:51 | XMS_ITS | Encounter Summary ---
Author Organization [facility] Address [address] [place] [address] Care Team Providers Care Director Pharmaceutical Name Role Phone Jolanta Morrell MD Primary Care Provider +1- [phone] Reason for Referral * Cardiac Diagnostic Testing (Routine) - Pending Review Specialty Diagnoses / Procedures Referred By Contsaray t Referred To Contact Diagnoses Atrial fibrillation, unspecified type (HCC) Procedures Cardiac event monitor - 30 day Yaniv Craig II, MD [address] [place] [address] Phone: tel: fax: Referral ID Status Reason Start Date Expiration Date V isits Requested Visits Authorized [id number] Pending Review 12/16/2023 06/16/2025 1 1 Encounter Details Date Type Department Care Team (Late st Contact Info) Description 12/16/2023 Orders Only [facility] Cardiology [address] [place] [address] Mini Sinha MD [address] [place] [address] [place] [address] Atrial fibrillation, unspecified type (HCC) (Primary Dx) Social History Tobacco Use Types Packs/Day Years [...] Info) Description 08/04/2024 1:00 PM EDT Appointment [facility] Otolaryngology Clinic [address] [place] [address] Onsite Case Manager: Alejandra Barnes, LEE Camacho [address] [place] [address] 09/21/2024 1:00 PM EDT Follow-Up [facility] Anticoagulation Clinic [address] [place] [address] Onsite Case Manager: Lisy Varma NP [address] [place] [address] 02/24/2025 1:00 PM EST Appointment [facility] ACC Vascular Lab [address] [place] [address] 02/24/2025 2:00 PM EST Follow-Up [facility] ACC Building Vascular Surgery [address] [place] [address] Onsite Case Manager: Joseline May MD [address] [place] [address] 03/29/2025 10:00 AM EST Follow-Up [facility] [address] [place] [address] Sebastian Oneal MD [address] [place] [address] documented as of this encounter Results * Due to [place] state law, this organization might not be sharing negative HIV tests. * CARDIAC EVENT MONITOR 30 DAY MAIL OUT (12/22/2023 9:33 AM EDT) Anatomical Region Laterality Modality Monitor Room Narrative 12/23/2023 9:54 AM EDT This is a Cardiac event monitor - 30 day. The study period is 12/19/23 to 12/21/23. ?? Findings: ??There were a total of 5 activations for review. ??These activations correlated with sinus rhythm. 2 of the 5 strips have PVCs. No symptoms recorded to correlate with rhythm. Conclusions: No significant arrhythmias. us Yaniv Craig II, MD [facility] PROC EDURES Final Result documented in this encounter Visit Diagnoses Diagnosis Atrial fibrillation, unspecified type (HCC)- Primary Atrial fibrillation, unspecified type (HCC) documented in this encounter Care Teams Director Pharmaceutical Relationship Specialty Start Date End Date Jolanta Morrell MD [address] [place] [address] PCP - General Family Medicine 10/28/18 documented as of this encounter
--- OUTSIDE RECORDS SUMMARY | 2024-06-01 13:51 | XMS_ITS | Encounter Summary ---
Author Organization [facility] Address [address] [place] [address] Care Team Providers Care Wheel Buffer Name Role Phone Jolanta Morrell MD Primary Care Provider +1- [phone] Encounter Details Date Type Department Care Team (Late st Contact Info) Description 05/04/2024 Documentation [facility] Anticoagulation Clinic [address] [place] [address] Disc Jockey: Marcos Yee MD MS [address] [place] [address] Social History Tobacco Use Types Packs/Day Years Used Date Smoking Tobacco: Every Day Cigarettes 2 45 Smokeless Tobacco: Never Comments:2-3 ppd every day-r olls own cigarettes Alcohol Use Standard Drinks/Week Comments Not Currently 0 (1 standard drink = 0.6 oz pur e alcohol) 1982 [facility] Utilities Answer Date Recorded In the past 12 months has e [employer], gas, oil, or water [employer] threatened to shut off services in your [...] as of this encounter Progress Notes * Macros Art MD MS - 05/04/2024 12:00 AM EST Anticoagulation Progress Report May 04, 2024 Name: CYRUS LEWIS Reason for Treatment: Atrial fibrillation paroxysmal INR Range: 2.0-3.0 Date: 2024-05-04 10:09 Location: Anticoagulation Center, [facility] INR: 2.60 Tablet Strength: 5 mg Next INR: 7 days 2024-05-11 Progress Note: Home monitor. Signature Note: Assessment by Mady House NP; dosage by Mady House NP Dosage Out: :Newby-2.5mg:M-5mg:T-2.5mg:W-5mg:Th-2.5mg:F-5mg:Sa-2.5mg: documented in this encounter Plan of Treatment Upcoming Encounters Date Type Department Care Team (Late st Contact Info) Description 08/04/2024 1:00 PM EDT Appointment [facility] Otolaryngology Clinic [address] [place] [address] Disc Jockey: Alejandra Barnes, LEE Camacho [address] [place] [address] 09/21/2024 1:00 PM EDT Follow-Up [facility] Anticoagulation Clinic [address] [place] [address] Disc Jockey: Lisy Varma NP [address] [place] [address] 02/24/2025 1:00 PM EST Appointment [facility] ACC Vascular Lab [address] [place] [address] 02/24/2025 2:00 PM EST Follow-Up [facility] ACC Building Vascular Surgery [address] [place] [address] Disc Jockey: Joseline May MD [address] [place] [address] 03/29/2025 10:00 AM EST Follow-Up [facility] Eye Center [address] [place] [address] Sebastian Oneal MD [address] [place] [address] documented as of this encounter Visit Diagnoses Not on filedocumented in this encounter Care Teams Wheel Buffer Relationship Specialty Start Date End Date Jolanta Morrell MD [address] [place] [address] PCP - General Family Medicine 10/28/18 documented as of this encounter
--- OUTSIDE RECORDS SUMMARY | 2024-06-01 13:51 | XMS_ITS | Encounter Summary ---
Author Organization [facility] Address [address] [place] [address] Care Team Providers Care Photocopying Machine Operator Name Role Phone Jolanta Morrell MD Primary Care Provider +1- [phone] Reason for Visit * Reason Comments Med Refill Encounter Details Date Type Department Care Team (Late st Contact Info) Description 05/17/2024 Refill [facility] 4th floor Cardiology Medicine [address] [place] [address] Gun Fertilizer: Mini Chapman MD [address] [place] [address] [place] [address] Allergic rhinitis Social History Tobacco Use Types Packs/Day Years Used Date Smoking Tobacco: Every Day Cigarettes 2 45 Smokeless Tobacco: Never Comments:2-3 ppd every day-r olls own cigarettes Alcohol Use Standard Drinks/Week Comments Not Currently 0 (1 standard drink = 0.6 oz pur e alcohol) 1982 [facility] Utilities Answer Date Recorded In the past 12 months has [employer], gas, oil, or water [employer] threatened to shut off services in your [...] Info) Description 08/04/2024 1:00 PM EDT Appointment [facility] Otolaryngology Clinic [address] [place] [address] Gun Fertilizer: Kal Alicea PA [address] [place] [address] 09/21/2024 1:00 PM EDT Follow-Up [facility] Anticoagulation Clinic [address] [place] [address] Gun Fertilizer: Lisy Varma NP [address] [place] [address] 02/24/2025 1:00 PM EST Appointment [facility] ACC Vascular Lab [address] [place] [address] 02/24/2025 2:00 PM EST Follow-Up [facility] ACC Building Vascular Surgery [address] [place] [address] Gun Fertilizer: Joseline May MD [address] [place] [address] 03/29/2025 10:00 AM EST Follow-Up [facility] Eye [address] [address] Sebastian Oneal MD [address] [place] [address] documented as of this encounter Visit Diagnoses Diagnosis Allergic rhinitis Allergic rhinitis, cause unspecified documented in this encounter Care Teams Photocopying Machine Operator Relationship Specialty Start Date End Date Jolanta Morrell MD [address] [place] [address] PCP - General Family Medicine 10/28/18 documented as of this encounter
--- OUTSIDE RECORDS SUMMARY | 2024-06-01 13:51 | XMS_ITS | Encounter Summary ---
Author Organization [facility] Address [address] [place] [address] Care Team Providers Care Quality Assurance Intern Name Role Phone Jolanta Morrell MD Primary Care Provider +1- [phone] Encounter Details Date Type Department Care Team (Late st Contact Info) Description 04/27/2024 Documentation [facility] Anticoagulation Clinic [address] [place] [address] Retail Delivery Driver: Marcos Yee MD MS [address] [place] [address] Social History Tobacco Use Types Packs/Day Years Used Date Smoking Tobacco: Every Day Cigarettes 2 45 Smokeless Tobacco: Never Comments:2-3 ppd every day-r olls own cigarettes Alcohol Use Standard Drinks/Week Comments Not Currently 0 (1 standard drink = 0.6 oz pur e alcohol) 1982 [facility] Utilities Answer Date Recorded In the past 12 months has e [employer], gas, oil, or water [employer] threatened to shut off services in your [...] Notes * Marcos Art MD MS - 04/27/2024 12:00 AM EST Anticoagulation Progress Report April 27, 2024 Name: CYRUS LEWIS Reason for Treatment: Atrial fibrillation paroxysmal INR Range: 2.0-3.0 Date: 2024-04-27 08:53 Location: Anticoagulation Center, [facility] INR: 2.80 Tablet Strength: 5 mg Next INR: 7 days 2024-05-04 Progress Note: Home INR Signature Note: Assessment by Alejandra Prater RN; dosage by Alejandra Prater RN Provider Review/Interpretation/Management Note: INR and warfarin dosage reviewed by Hilda Call NP (Hilda Call NP, 04/27/24 09:01) Dosage Out: :Newby-2.5mg:M-5mg:T-2.5mg:W-5mg:Th-2.5mg:F-5mg:Sa-2.5mg: documented in this encounter Plan of Treatment Upcoming Encounters Date Type Department Care Team (Late st Contact Info) Description 08/04/2024 1:00 PM EDT Appointment [facility] Otolaryngology Clinic [address] [place] [address] Retail Delivery Driver: Alejandra Barnes, LEE Camacho [address] [place] [address] 09/21/2024 1:00 PM EDT Follow-Up [facility] Anticoagulation Clinic [address] [place] [address] Retail Delivery Driver: Lisy Varma NP [address] [place] [address] 02/24/2025 1:00 PM EST Appointment [facility] ACC Vascular Lab [address] [place] [address] 02/24/2025 2:00 PM EST Follow-Up [facility] ACC Building Vascular Surgery [address] [place] [address] Retail Delivery Driver: Joseline May MD [address] [place] [address] 03/29/2025 10:00 AM EST Follow-Up [facility] [address] [place] [address] Sebastian Oneal MD [address] [place] [address] documented as of this encounter Visit Diagnoses Not on filedocumented in this encounter Care Teams Quality Assurance Intern Relationship Specialty Start Date End Date Jolanta Morrell MD [address] [place] [address] PCP - General Family Medicine 10/28/18 documented as of this encounter
--- OUTSIDE RECORDS SUMMARY | 2024-06-01 13:51 | XMS_ITS | Encounter Summary ---
Author Organization [facility] Address [address] [place] [address] Care Team Providers Care Gaming Table Operator Name Role Phone Jolanta Morrell MD Primary Care Provider +1- [phone] Encounter Details Date Type Department Care Team (Late st Contact Info) Description 05/18/2020 Orders Only [facility] Nuclear Medicine [address] [place] [address] Alistair Rabago MD [address] [place] [address] Social History Tobacco Use Types Packs/Day Years [...] Info) Description 08/04/2024 1:00 PM EDT Appointment [facility] Otolaryngology Clinic [address] [place] [address] Predatory Hunter: Alejandra Barnes, LEE Camacho [address] [place] [address] 09/21/2024 1:00 PM EDT Follow-Up [facility] Anticoagulation [facility] [address] [place] [phone] Predatory Hunter: Lisy Varma NP [address] [place] [address] 02/24/2025 1:00 PM EST Appointment [facility] ACC Vascular Lab [address] [place] [address] 02/24/2025 2:00 PM EST Follow-Up [facility] ACC Building Vascular Surgery [address] [place] [address] Predatory Hunter: Joseline May MD [address] [place] [address] 03/29/2025 10:00 AM EST Follow-Up [facility] [address] [place] [phone] Sebastian Oneal MD [address] [place] [address] documented as of this encounter Visit Diagnoses Not on filedocumented in this encounter Care Teams Gaming Table Operator Relationship Specialty Start Date End Date Jolanta Morrell MD [address] [place] [address] PCP - General Family Medicine 10/28/18 documented as of this encounter
--- OUTSIDE RECORDS SUMMARY | 2024-06-01 13:51 | XMS_ITS | Encounter Summary ---
Author Organization [facility] Address [address] [place] [address] Care Team Providers Care Chemical Engineering Technologist Name Role Phone Jolanta Morrell MD Primary Care Provider +1- [phone] Reason for Visit * Reason Comments Med Refill Encounter Details Date Type Department Care Team (Late st Contact Info) Description 05/13/2024 Refill [facility] 4th floor Cardiology Medicine [address] [place] [address] Grounding Engineer: Mini Chapman MD [address] [place] [address] Cardiovascular [place] [address] Allergic rhinitis Social History Tobacco Use Types Packs/Day Years Used Date Smoking Tobacco: Every Day Cigarettes 2 45 Smokeless Tobacco: Never Comments:2-3 ppd every day-r olls own cigarettes Alcohol Use Standard Drinks/Week Comments Not Currently 0 (1 standard drink = 0.6 oz pur e alcohol) 1982 [facility] Utilities Answer Date Recorded In the past 12 months has [employer], gas, oil, or water [employer] threatened to shut off services in your [...] encounter Miscellaneous Notes * Telephone Encounter - Pina Samson LPN - 05/13/2024 8:22 AM EST PCP to fill documented in this encounter Plan of Treatment Upcoming Encounters Date Type Department Care Team (Late st Contact Info) Description 08/04/2024 1:00 PM EDT Appointment [facility] Otolaryngology Clinic [address] [place] [address] Grounding Engineer: Kal Alicea PA [address] [place] [address] 09/21/2024 1:00 PM EDT Follow-Up [facility] Anticoagulation Clinic [address] [place] [address] Grounding Engineer: Lisy Varma NP [address] [place] [address] 02/24/2025 1:00 PM EST Appointment [facility] ACC Vascular Lab [address] [place] [address] 02/24/2025 2:00 PM EST Follow-Up [facility] Vascular Surgery [address] [place] [address] Grounding Engineer: Joseline May MD [address] [place] [address] 03/29/2025 10:00 AM EST Follow-Up [facility] Eye [place] [address] [place] [address] Sebastian Oneal MD [address] [place] [address] documented as of this encounter Visit Diagnoses Diagnosis Allergic rhinitis Allergic rhinitis, cause unspecified documented in this encounter Care Teams Chemical Engineering Technologist Relationship Specialty Start Date End Date Jolanta Morrell MD [address] [place] [address] PCP - General Family Medicine 10/28/18 documented as of this encounter
--- OUTSIDE RECORDS SUMMARY | 2024-06-01 13:51 | XMS_ITS | Encounter Summary ---
Author Organization [facility] Address [address] [place] [address] Care Team Providers Care Offset Machine Operator Name Role Phone Jolanta Morrell MD Primary Care Provider +1- [phone] Encounter Details Date Type Department Care Team (Late Contact Info) Description 05/02/2020 Telephone [facility] Nuclear Medicine [address] [place], [place] [phone] Jose Alfredo Mckinley, RN Social History Tobacco Use Types Packs/Day Years [...] Encounters Date Type Department Care Team (Late Contact Info) Description 08/04/2024 1:00 PM EDT Appointment [facility] Otolaryngology Clinic [address] [place] [address] Belting Cutter: Alejandra Barnes, LEE Camacho [address] [place] [address] 09/21/2024 1:00 PM EDT Follow-Up [facility] Anticoagulation Clinic [address] [place] [address] Belting Cutter: Lisy Varma NP [address] [place] [address] 02/24/2025 1:00 PM EST Appointment [facility] ACC Vascular Lab [address] [place] [address] 02/24/2025 2:00 PM EST Follow-Up [facility] ACC Building Vascular Surgery [address] [place] [address] Belting Cutter: Joseline May MD [address] [place] [address] 03/29/2025 10:00 AM EST Follow-Up [facility] [address] [place] [address] Sebastian Oneal MD [address] [place] [address] documented as of this encounter Visit Diagnoses Not on filedocumented in this encounter Care Teams Offset Machine Operator Relationship Specialty Start Date End Date Jolanta Morrell MD [address] [place] [address] PCP - General Family Medicine 10/28/18 documented as of this encounter
--- OUTSIDE RECORDS SUMMARY | 2024-06-01 13:51 | XMS_ITS | Encounter Summary ---
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 Social History Tobacco Use Types Packs/Day Years Used Date Smoking Tobacco: Every Day Cigarettes 2 45 Smokeless Tobacco: Never Comments:2-3 ppd every day-r olls own cigarettes Alcohol Use Standard Drinks/Week Comments Not Currently 0 (1 standard drink = 0.6 oz pur e alcohol) 1982 [facility] Utilities Answer Date Recorded In the past 12 months has th e [employer], gas, oil, or water [employer] threatened to shut off services in your [...] Info) Description 08/04/2024 1:00 PM EDT Appointment [facility] Otolaryngology Clinic [address] [place] [address] Mine Utility Operator: Kal Alicea PA [address] [place] [address] 09/21/2024 1:00 PM EDT Follow-Up [facility] Anticoagulation Clinic [address] [place] [address] Mine Utility Operator: Lisy Varma NP [address] [place] [address] 02/24/2025 1:00 PM EST Appointment [facility] ACC Vascular Lab [address] [place] [address] 02/24/2025 2:00 PM EST Follow-Up [facility] ACC Building Vascular Surgery [address] [place] [address] Mine Utility Operator: Joseline May MD [address] [place] [address] 03/29/2025 10:00 AM EST Follow-Up [address] [address] Sebastian Oneal MD [address] [place] [address] documented as of this encounter Visit Diagnoses Diagnosis Paroxysmal atrial fibrillation (HCC)- Primary Atrial fibrillation custodial (current) use of anticoagulants Long-term (current) use of anticoagulants documented in this encounter Care Teams Rod Placer Relationship Specialty Start Date End Date Jolanta Morrell MD [address] [place] [address] PCP - General Family Medicine 10/28/18 documented as of this encounter
--- OUTSIDE RECORDS SUMMARY | 2024-06-01 13:52 | XMS_ITS | Data Portability ---
Author Organization [facility] Address [address] [facility] [place] [address] Care Team Providers Care Special Effects Artist Name Role Phone REGINALD ARZATE Primary Care Provider [phone] REGINALD ARZATE Referring Provider [phone] Assessment Encounter Date Assessment Date Assessment LastModified by Organization Details LastModified Time 04/26/2024 04/26/2024 Peter is a pleasant 64-year-old male with a history of adrenal cancer status post left adrenalectomy, CAD status post prior PCI to the RCA, paroxysmal atrial fibrillation on warfarin, COPD not on home oxygen, abdominal arctic aneurysm status post stenting of the abdominal aortic aneurysm, iliac arteries. He presents to establish local cardiac care. He was previously followed at the [facility] cardiology fellows clinic, last seen there in March 2024. Ongoing risk factor is smoking Testing reviewed: 02/[address] reviewed with no cardiomegaly or pericardial effusion. Thoracic aorta was nondilated. Unchanged opacity in the right lower lobe probably an area of atelectasis or scarring. Mild emphysema. 02/2024 vascular abdominal study from [facility] reviewed with no flow in the residual sac of the aortic aneurysm. Less than 50% stenosis in the graft. No endoleak. 02/2024 carotid artery duplex study reviewed with only mild 1 to 29% stenosis bilaterally. 12/2023 CT of the abdomen reviewed. Stent graft in the abdominal aorta and bilateral iliac arteries with a calcified 5.1 cm sac surrounding distally. Stent lumen is grossly patent. 12/2023 30-day event monitor reviewed from [facility]. Patient activated this 5 times. Symptoms showed either sinus rhythm or PVCs. No significant arrhythmia during the study. 09/2022 EKG reviewed with sinus rhythm at 81 bpm with no significant ST or T wave changes 11/2020 cardiac catheterization reviewed with left main large with no significant disease, LAD with mild 30% stenosis, left circumflex with a 40% stenosis, patent stent in the RCA. Small PDA. No intervention needed Last echo available was from 07/2028 as part of a stress echo. Patient was only able to do 3 minutes and 12 seconds. He stopped due to fatigue and hip pain. Submaximal stress. Normal biventricular size and function with no significant valvular abnormalities Recent labs reviewed: 03/01/2024 CBC normal. Renal function normal. A1c 7.6%. LFTs grossly normal. Lipid panel reviewed with total cholesterol 129, triglycerides 281, calculated LDL 31, HDL 42. TSH 0.59. 01/2024 [facility] labs reviewed with sodium 140, potassium 4.2, BUN 17, creatinine 0.72. Hemoglobin 16.0 g/dL. Total cholesterol 151, triglycerides 294, HDL 39, calculated LDL 77. Not available 04/26/2024 11:28:37 Plan of Treatment Reminders Order Date Submit Date Provider Last Modified By Organization Details Last Modified Time Details Appointments CARD - Office Visit (20min) 2024 10:50A M Mike cardenas MD Not available Not available Not available Lab None recorde d. Referral None recorde d. Procedures None recorde d. Surgeries None recorde d. Imaging event monitor - one week 2024 025 albino [facility], [address], [place], [address], 05/25/2024 09:02:17 electro cardiog laura 2024 025 [facility] (Central Scheduling), [address] [place], [address], 04/26/2024 11:51:25 Medication Orders magnesi um 100 mg (as glycina te) tablet 2024 025 [facility]acy #[id number], [address] [place], [address], 04/26/2024 11:33:37 levalbu terol HFA 45 mcg/act uation aerosol inhaler 2024 025 [id number] [address] [facility], [place], [address], 04/26/2024 11:29:12 diltiaz em CD 120 mg capsule ,extend ed release 24 hr 2024 025 [id number] [address] [facility], [place], [address], 04/29/2024 08:26:57 lisinop ril 5 mg tablet 2024 025 [id number] [address] [facility], [place], [address], 04/26/2024 11:30:48 metform in 500 mg tablet 2024 025 [id number] [address] [facility], [place], [address], 04/26/2024 11:29:49 atorvas tatin 80 mg tablet 2024 025 [id number] [address] [facility], [place], [address], 04/26/2024 11:31:03 Patient TargetsNo targets recorded. Patient Instructions Encounter Date Encounter Id Patient Instructions Last Modified By Organization Details Last Modified Time 02/13/[id number] scan also dean ws a potential [...] an off cystoscopy we will schedule him dinorah Not available 02/13/2024 10:49:46 02/27/2024 [id number] You have had an Urgent Care Visit [...] physical issues. [email or web address] Not available 02/27/2024 13:19:47 04/26/2024 [id number] Follow up in several months or sooner if needed. I spent a total of {{30 40 50 60 45#}} minutes on the date of encounter, which included: Preparing to see the patient (e.g., review of test results) Obtaining and/or reviewing separately obtained history Performing a medically appropriate exam and/or evaluation Documenting clinical information in the health record Ordering medications, tests, procedures Referring and communicating with other healthcare professionals Independently interpreting results (not separately reported) Care coordination not separately reported Not available 04/26/2024 14:11:46 Reason for Referral None Reported. Results Created Date Observation Date Name Description Value Unit Range Abnormal Flag Note LastModifiedBy Organization Detail LastModifiedTime 03/30/20 24 09/25/2022 eduin mercado am No observ ation record ed. [email or web address] Not Available 2023 10:48:26 03/30/20 24 03/02/2024 CT, chest , w/ contr ast No observ ation record ed. ebehrens Not Available 2023 10:50:02 03/30/20 24 06/02/2023 LDCT, chest , for lung cance r patito reeves No observ ation record ed. ebehrens Not Available 2023 11:04:39 03/30/2003/25/2022 CT, angio gram, chest , w/wo contr ast No observ ation record ed. ebehrens Not Available 2023 11:07:26 03/30/2004/24/2020 US, echoc ardio gram, trans thora cic, compl ete, w/ color flow No observ ation record ed. ebehrens Not Available 2023 11:09:20 03/30/2003/04/2017 NM, myoca rdial perfu kita scan No observ ation record ed. ebehrens Not Available 2023 11:12:49 03/30/2002/09/2024 US, duple x, carot id arter y No observ ation record ed. ebehrens Not Available 2023 11:19:47 03/30/2008/08/2023 elect rocar diogr am No observ ation record ed. [email or web address] Not Available 2023 11:22:56 03/30/2003/18/2024 elect rocar diogr am No observ ation record ed. [email or web address] Not Available 2023 11:34:53 03/30/2007/16/2018 stres s echoc ardio gram No observ ation record ed. [email or web address] Not Available 2023 11:43:31 04/26/1904/26/2024 elect rocar diogr am No observ ation record ed. albino [facility] ([facility]) [address] [place], [address], 04/26/2024 11:51:29 Result Notes None recorded. Problems Name Problem SNOMED Code Status Onset Date Resolution Date Notes Provider Name and Address Organization Details Recorded Time Peripheral vascular disease 074398523 Active 2024 Mike cardenas MD [address] [facility] [place], [address], [facility] 5 10:57:07 Paroxysmal atrial fibrillation 295392798 Active 2024 Mike cardenas MD [address] [facility] [place], [address], [facility] 5 10:57:08 Chronic obstructive pulmonary disease 90996164 Active 2024 Mike cardenas MD [address] [facility] [place], [address], [facility] 5 11:28:37 Type 2 diabetes mellitus without complication 623487983 Active 2024 Mike cardenas MD [address] [facility] [place], [address], [facility] 5 11:29:29 Coronary arterioscleros is 57810810 Active 2024 Mike cardenas MD [address] [facility] [place], [address], [facility] 5 11:30:28 Essential hypertension 51142008 Active 2024 Mike cardenas MD [address] [place], [address], [facility] 5 11:30:30 Palpitations 35070986 Active 2024 Mike cardenas MD [address] [facility] [place], [address], [facility] 5 11:32:34 Smoker 49289038 Active 2024 Mike cardenas MD [address] [place], [address], [facility] 5 14:11:54 Problem Notes None recorded. Procedures Surgical History Date Name Laterality Status Provider Name and Address Organization Details Recorded Time 04/26/2024 EKG completed Mike Salamanca MD [address] [place], [address], [facility] 04/26/2024 11:19:58 Imaging Results Imaging Date Name Status LastModified by Organization Details LastModified Time 09/25/2022 electrocardiogram completed Informa tion not available 03/30/2024 10:48:26 03/02/2024 CT, chest, w/ contrast completed Information not available 03/30/2024 10:50:02 06/02/2023 LDCT, chest, for lung cancer screening completed Information not available 03/30/2024 11:04:39 03/25/2022 CT, angiogram, chest, w/wo contrast completed Information not available 03/30/2024 11:07:26 04/24/2020 US, echocardiogram, transthoracic, complete, w/ color flow completed Information not available 03/30/2024 11:09:20 03/04/2017 NM, myocardial perfusion scan completed Information not available 03/30/2024 11:12:49 02/09/2024 US, duplex, carotid artery completed Information not available 03/30/2024 11:19:47 08/08/2023 electrocardiogram completed Informa tion not available 03/30/2024 11:22:56 03/18/2024 electrocardiogram completed Informa tion not available 03/30/2024 11:34:53 07/16/2018 stress echocardiogram completed Information not available 03/30/2024 11:43:31 04/26/2024 electrocardiogram completed [facility] (Central Scheduling) [address] [place], [address], 04/26/2024 11:51:29 Procedure Notes None recorded. Medical Equipment None Reported. Allergies Allergen ID Allergen Name Allergen Category Reaction Reaction Severity Criticality Documentation Date Start Date Code Code System Note Provider Name and Address Organization Details Recorded Time 239798 trazodone medicatio n swelling Not available Not available 02/13/2024 51740 RxNorm priap ism ULISES [facility] 10:34:38 Medications Name Sig Start Date Stop Date Status Note LastModified by Organization Details LastModified Time metformin 500 mg tablet TAKE 1 TABLET BY MOUTH TWICE A DAY active Not Available Not Available No t Available atorvasta tin 80 mg tablet TAKE 1 TABLET BY MOUTH EVERY DAY active Not Available Not Available No t Available prednison e 10 mg tablet TAKE 6 TABS ONCE DAILY X2 DAYS, 5 TABS DAILY X2 DAYS, 4 TABS X2 DAYS, 3 TABS X2, 1 TAB DAILY X2 DAYS 02/12 completed Not Available Not Available Not Available doxycycli ne hyclate 100 mg capsule TAKE 1 CAPSULE BY MOUTH TWICE A DAY 02/12 completed Not Available Not Available Not Available azithromy cady 250 mg tablet 02/12 completed Not Available Not Available Not Available sotalol 80 mg tablet TAKE HALF TABLET TWICE DAILY 2024 active Not Available Not Available Not Avai lable aspirin 81 mg tablet,de layed release TAKE 1 TABLET BY MOUTH EVERY DAY active Not Available Not Available No t Available tamsulosi n 0.4 mg capsule 04/26 completed Not Available Not Available Not Available prednison e 50 mg tablet 02/12 completed Not Available Not Available Not Available warfarin 5 mg tablet active Not Available Not Available Not Available diltiazem CD 120 mg capsule,e xtended release 24 hr TAKE 1 CAPSULE BY MOUTH EVERY DAY active Not Available Not Available No t Available lisinopri l 5 mg tablet Take 1 tablet every day by oral route for 30 days. active Not Available Not Available No t Available gabapenti n 100 mg capsule 02/12 completed Not Available Not Available Not Available fluticaso ne propionat e 50 mcg/actua tion nasal spray,yi pension as needed active Not Available Not Available No t Available rosuvasta tin 40 mg tablet TAKE 1 TABLET BY MOUTH EVERY DAY AT NIGHT- stopped last week as of 04/26/2404/26 completed stopped last week as of 04/26/24 Not Available Not Available Not Available levalbute rol HFA 45 mcg/actua tion aerosol inhaler INHALE 2 PUFFS EVERY 6 HOURS active Not Available Not Available No t Available magnesium 100 mg (as glycinate ) tablet Take 1 tablet every day by oral route for 30 days. 2024 active Not Available Not Available Not Avai lable GaviLyte- G 236 gram-22.7 4 gram-6.74 gram-5.86 gram oral solution 04/26 completed Not Available Not Available Not Available Combivent Respimat 20 mcg-100 mcg/actua tion solution for inhalatio n INHALE 1 PUFF BY MOUTH 4 TIMES DAILY active Not Available Not Available No t Available Spiriva Respimat 2.5 mcg/actua tion solution for inhalatio n 04/26 completed Not Available Not Available Not Available Vitals Date Recorded Body height Body mass index (BMI) Body weight Heart rate Systolic blood pressure Diastolic blood pressure Provider Name and Address Organization Details Last Updated DateTime 185.42 cm 30.9 kg/m2 149380. 61 g 73 /min 120 mm[Hg] 74 mm[Hg] Marc vaca [facility] 10:33:27 Date Recorded Body height Heart rate Body temperature Oxygen saturation Oxygen saturation in Arterial blood by Pulse oximetry Systolic blood pressure Diastolic blood pressure Provider Name and Address Organization Details Last Updated DateTime 185.42 cm 72 /min 98.8 [degF] 96 % 96 % 138 mm[Hg] 70 mm[Hg] Marlyn Davis [facility] 13:02:50 Date Recorded Body height Body mass index (BMI) Body weight Heart rate Provider Name and Address Organization Details Last Updated DateTime 04/26/2024 185.42 cm 32.2 kg/m2 250641.54 g 75 /min RA Moore [facility] 04/26/2024 11:09:26 Date Recorded Systolic blood pressure Diastolic blood pressure Provider Name and Address Organization Details Last Updated DateTime 04/26/2024 140 mm[Hg] 80 mm[Hg] Mike Salamanca MD [address] [place] [address], [address], [facility] 04/26/2024 11:31:17 Social History None recorded. Functional Status None recorded. Mental Status None recorded. Family History Nothing Reported. Medical History Condition Response diabetes Y heart attack N defibrillator N carotid artery disease Y cardiac stents Y high blood pressure Y coronary artery disease Y heart valve surgery N atrial fibrillation Y cardiac by-pass N high cholesterol Y Past Encounters Encounter ID Performer Location Encounter Start Date Encounter Closed Date Diagnosis/Indication Diagnosis SNOMED-CT Code Diagnosis ICD10 Code Diagnosis Note [id number] Severo Baumann MD [facility] [address] [place] [address] 02/13/2024 10:21:35 02/13/2024 11:29:12 Ureteric stone 93570632 N20.1 Lesion of urinary bladder 488644183 N32.9 [id number] Ele Tipton MD [facility] [address] [place] [address] 02/27/2024 12:53:55 02/27/2024 13:23:30 Paresthesia of lower extremity 919449689 R20.2 - exam WNL, vss- DP+PT pulses intact, no discolorat ion- discussed that to take appropriat e bp's of legs, he should have an DYAN test- discussed that to do BP's here in office he would need a doppler BP and the staff is not comfortabl e with test- this is ongoing and chronic, not new - advised to f/u with pcp for further evaluation [id number] Mike Salamanca MD [facility] - [place] [facility] [address] [place] [address] 04/26/2024 10:48:48 04/26/2024 11:39:14 Peripheral vascular disease 761667007 I73.9 Evidence of peripheral vascular disease with prior stent in the abdominal aorta and iliac arteries.C ontinue statin. Paroxysmal atrial fibrillation 143319182 I48.0 He has a known history of paroxysmal A-fib.He is currently on warfarin. Although it appears that his insurance would cover a direct oral anticoagul ant, such as Eliquis would like to continue with warfarin. He is currently home ly and calls [facility] with his level every week. Given this convenienc e I think is reasonable continue with warfarin although if he has trouble with INR management he could consider Eliquis. It is unclear if he has significan t A-fib symptoms. Based on his prior monitor the occasional palpitatio ns or skipped beats could be due to PVCs. I will have him undergo a more easy to use 1 week event monitor. Given that sotalol is a beta-block er he would like to come off of this and try calcium channel darío given his inhalers and COPD. Therefore he will switch to Diltiazem CD 120 mg daily. Essential hypertension 12737102 I10 Blood pressure is not controlled . I recommende d starting with diltiazem, as per above and increasing lisinopril to 5 mg daily. We discussed that an JUNG inhibitor is recommende d in cases of type 2 diabetes. Coronary arteriosclerosis 56723103 I25.10 He denies symptoms of angina. Continue statin. Chronic ob structive pulmonary disease 83812802 J44.9 As per above he would like to try leave albuterol to see if this can limit palpitatio ns. He would like to come off sotalol, as per above and try diltiazem instead. Type 2 moy betes mellitus without complication 545716765 E11.9 We discussed that his levels of A1c over the past year are consistent with diabetes, most recently 7.1 and 7.6%. I recommende d starting with metformin as initial treatment. He will discuss this further with his PCP at follow-up. Palpitations 36809740 R0 0.2 He notes occasional brief palpitatio ns for He will undergo a 1 week event monitor. We discussed that magnesium could help. We discussed that magnesium is often low in diabetic individual s. This could also help him sleep if taken at night. He will try this. I recommend that magnesium glycinate, which is the more gentle better tolerated formulatio n. Smoker 00802622 F17.200 He currently rolls and smokes 2 packs/day. He is not interested in smoking cessation. He has tried medical therapy and hypnosis in the past. Health Concerns Section Related Observation LastModified by Organization Detai ls LastModified Time None Recorded Concern Status LastModified by Organization Details LastModified Time None Recorded Advance Directives Directive None Recorded Payers Encounter Date Sequence Insurance Name Policy Number Policy Carter Covered Member ID Carter Member ID Guarantor Name 02/13/2024 2 [place] [facility] Peter Lewis [id number] Peter Lewis 02/13/2024 1 [place] [employer] Cyrus Lewis [id number] Peter Lewis 02/27/2024 2 [place] [facility] Peter Lewis [id number] Peter Lewis 02/27/2024 1 [place] [facility] Cyrus Lewis [id number] Peter Lewis 04/26/2024 2 [place] [facility] Peter Lewis [id number] Peter Lewis 04/26/2024 1 [place] [facility] Cyrus Lewis [id number] Peter Lewis Notes Date Note Type Note Provider Name and Address Organization Details Recorded Time 02/13/2024 text/html This is a 64-year-old white male who went to this emergency room at [facility] and had a CT scan performed [...] alpha-darío secondary to dizziness. Severo Baumann MD [address] [place], [address], [facility] 02/13/2024 10:50:06 02/27/2024 text/html 64 yr old [...] didnt check his legs. Ele Tipton MD [address] [place], [address], [facility] 02/28/2024 22:43:57 04/26/2024 text/html He was a pleasan t 64-year-old male. He presents to establish local cardiac care. He was previously following at the [facility] cardiology clinic and I reviewed the note from March. He preferred to follow locally as he does not likely trip to [place]. And with vascular surgery with endovascular repair of abdominal aortic aneurysm a few years ago. Follow-up study a few months ago showed no leak of this. He has nonsignificant carotid disease. He has a history of coronary disease with a stent in the right coronary artery.He has a longstanding history of paroxysmal A-fib. He has been doing well in general with sotalol but he would like to be off this medication and that he has COPD and he was told that he should not be on a beta-darío he has been hoping to wean off this medication. He states that there are some inhalers that he would like to try that he should not begin with sotalol. We discussed that a calcium channel darío like diltiazem may be preferable. He is currently on lisinopril 2.5 mg daily. He is ongoing hypertension. Together we reviewed his A1c levels in the system both at [facility] and here. The last 2 were of 7.6 and 7.1 both consistent with diabetes. Based on chart review he had prediabetes back around 2020 but it looks like for the past year his levels are consistent with diabetes. I recommended metformin as an additional treatment. He denies chest pain. He denies orthopnea. He feels really healthy occasional skipped beats or palpitations. He did try and attempt to event monitors with his prior concept artist. He had trouble using the monitor. We discussed we have a more simple or device which can help monitor. He currently smokes 2 packs/day of cigarettes. He states that he rolls his own cigarettes. He has tried multiple things including hypnosis which has not worked for him. He is not interested in smoking cessation at this time. Mike Salamanca MD [address] [place] [address], [phone], [facility] 04/26/2024 14:12:47
--- OUTSIDE RECORDS SUMMARY | 2024-06-01 13:52 | XMS_ITS | Encounter Summary ---
Author Organization [facility] Address [address] [place] [address] Care Team Providers Care Animal Anatomy Teacher Name Role Phone Jolanta Morrell MD Primary Care Provider [phone] Encounter Details Date Type Department Care Team (Late st Contact Info) Description 05/06/2016 Orders Only [facility] [address] [address] Jolanta Morrell MD [address] [place] [address] Social History Tobacco Use Types Packs/Day Years [...] Info) Description 08/04/2024 1:00 PM EDT Appointment [facility] [address] [place] [address] Logging Tractor Operator: Kal Alicea PA [address] [place] [address] 09/21/2024 1:00 PM EDT Follow-Up [facility] [address] [place] [address] Logging Tractor Operator: Lisy Varmat, [employer] DRIVER [address] [place] [address] 02/24/2025 1:00 PM EST Appointment [facility] [address] [place] [address] 02/24/2025 2:00 PM EST Follow-Up [facility] Building Vascular Surgery [address] [place] [address] Logging Tractor Operator: Joseline May MD [address] [place] [address] 03/29/2025 10:00 AM EST Follow-Up [facility] [address] [address] Sebastian Oneal MD [address] [place] [address] documented as of this encounter Visit Diagnoses Not on filedocumented in this encounter Additional Health Concerns Infection Onset Date Last Indicated Resolved Time COVID-19 - Suspected infection 07/06/2019 07/06/2019 07/07/2019 5:03 PM EDT documented as of this encounter Care Teams Animal Anatomy Teacher Relationship Specialty Start Date End Date Jolanta Morrell MD [address] [place] [id number] PCP - General Family Medicine 10/28/18 documented as of this encounter
--- OUTSIDE RECORDS SUMMARY | 2024-06-01 13:52 | XMS_ITS | Encounter Summary ---
Author Organization [facility] Address [address] [place] [address] Care Team Providers Care Business Objects Name Role Phone Jolanta Morrell MD Primary Care Provider [phone]- [phone] Encounter Details Date Type Department Care Team (Late st Contact Info) Description 06/07/2016 Orders Only [facility] [address] [address] Jolanta Morrell MD [address] [place] [id number] Social History Tobacco Use Types Packs/Day Years [...] Info) Description 08/04/2024 1:00 PM EDT Appointment [facility] [address] [place] [address] Engine Lathe Tender: Kal Alicea PA [address] [place] [id number] 09/21/2024 1:00 PM EDT Follow-Up [facility] [address] [place] [address] Engine Lathe Tender: Lisy Varmat, MANAGER ESTATE [address] [place] [address] 02/24/2025 1:00 PM EST Appointment [facility] [address] [place] [address] 02/24/2025 2:00 PM EST Follow-Up [facility] Vascular Surgery [address] [place] [address] Engine Lathe Tender: Joseline May MD [address] [place] [address] 03/29/2025 10:00 AM EST Follow-Up [facility] [address] [address] Sebastian Oneal MD [address] [place] [phone] documented as of this encounter Visit Diagnoses Not on filedocumented in this encounter Additional Health Concerns Infection Onset Date Last Indicated Resolved Time COVID-19 - Suspected infection 07/06/2019 07/06/2019 07/07/2019 5:03 PM EDT documented as of this encounter Care Teams Business Objects Relationship Specialty Start Date End Date Jolanta Morrell MD [address] [place] [id number] PCP - General Family Medicine 10/28/18 documented as of this encounter
--- OUTSIDE RECORDS SUMMARY | 2024-06-01 13:52 | XMS_ITS | Referral Summary ---
Author Organization [facility] Address [address] [place] [address] Care Team Providers Care Mrb Engineer Name Role Phone Jolanta Morrell MD Primary Care Provider [phone]- [phone] Encounters Date Type Department Care Team Description 06/01/2024 Documentation [facility] [address] [place] [address] [phone] Client Service Administrator: Marcos Yee MD MS 05/28/2024 Refill [facility] 4th floor Cardiology Medicine [address] [place] [address] [phone] Client Service Administrator: Mini Chapman MD Allergic rhinitis 05/25/2024 Documentation [facility] [address] [place] [address] [phone] Client Service Administrator: Marcos Yee MD MS 05/18/2024 External Contact [facility] [address] [place] [address] [phone] Client Service Administrator: Marcos Yee MD MS Paroxysmal atrial fibrillation (HCC) (Primary Dx); MCC (current) use of anticoagulants 05/18/2024 Documentation [facility] [address] [place] [address] [phone] Client Service Administrator: Marcos Yee MD MS 05/17/2024 Refill [facility] 4th floor Cardiology Medicine [address] [place] [address] Client Service Administrator: Mini Chapman MD Allergic rhinitis 05/13/2024 Refill [facility] 4th floor Cardiology Medicine [address] [place] [address] Client Service Administrator: Mini Chapman MD Allergic rhinitis 05/12/2024 Telephone [facility] Primary Care [address] [place] [phone] Jolanta Morrell MD Dose change for Lisinopril 05/11/2024 External Contact [facility] [address] [place] [address] [phone] Client Service Administrator: Marcos Yee MD MS Paroxysmal atrial fibrillation (HCC) (Primary Dx); rn long term care (current) use of anticoagulants 05/11/2024 External Contact [facility] [address] [place] [phone] Client Service Administrator: Marcos Yee MD MS Paroxysmal atrial fibrillation (HCC) (Primary Dx); rn long term care (current) use of anticoagulants 05/11/2024 Documentation [facility] [address] [place] [address] [phone] Client Service Administrator: Marcos Yee MD MS 05/04/2024 External Contact [facility] [address] [place] [address] [phone] Client Service Administrator: Marcos Yee MD MS Paroxysmal atrial fibrillation (HCC) (Primary Dx); rn long term care (current) use of anticoagulants 05/04/2024 Documentation [facility] [address] [place] [address] [phone] Client Service Administrator: Marcos Yee MD MS 05/03/2024 Telephone [facility] [address] [place] [phone] Jolanta Morrell MD 04/27/2024 Documentation [facility] [address] [place] [address] [phone] Client Service Administrator: Marcos Yee MD MS 04/20/2024 External Contact [facility] [address] [place] [address] [phone] Client Service Administrator: Marcos Yee MD MS Paroxysmal atrial fibrillation (HCC) (Primary Dx); rn long term care (current) use of anticoagulants 04/20/2024 Documentation [facility] [address] [place] [phone] Client Service Administrator: Marcos Yee MD MS 04/13/2024 Documentation [facility] [address] [place] [address] [phone] Client Service Administrator: Marcos Yee MD MS 04/09/2024 Refill [facility] [address] [place] [phone] Jolanta Morrell MD 04/06/2024 External Contact [facility] [address] [place] [address] [phone] Client Service Administrator: Marcos Yee MD MS Paroxysmal atrial fibrillation (HCC) (Primary Dx); MCC (current) use of anticoagulants 04/06/2024 Documentation [facility] [address] [place] [phone] Client Service Administrator: Marcos Yee MD [place] 03/30/2024 External Contact [facility] [address] [place] [address] [phone] Client Service Administrator: Marcos Yee MD MS Paroxysmal atrial fibrillation (HCC) (Primary Dx); rn long term care (current) use of anticoagulants 03/30/2024 Documentation [facility] [address] [phone] Client Service Administrator: Marcos Yee MD [place] 03/25/2024 10:00 AM EST Follow-Up [facility] [address] [place] [address] [phone] Sebastian Oneal MD Age-related nuclear cataract of both eyes (Primary Dx); Hypertensive retinopathy of both eyes; Choroidal nevus, left eye; Type 2 diabetes mellitus without retinopathy (CMS/HCC) (HCC); Tortuous retinal veins; PVD (posterior vitreous detachment), right eye 03/24/2024 Telephone [facility] [address] [place] [phone] Jolnata Morrell MD 03/23/2024 External Contact [facility] [address] [phone] Client Service Administrator: Marcos Yee MD MS Paroxysmal atrial fibrillation (HCC) (Primary Dx); MCC (current) use of anticoagulants 03/23/2024 Documentation [facility] [address] [place] [address] [phone] Client Service Administrator: Marcos Yee MD MS 03/18/2024 1:00 PM EST Follow-Up [facility] 4th floor Cardiology Medicine [address] [place] [phone] Client Service Administrator: Mini Chapman MD Paroxysmal atrial fibrillation 03/16/2024 Documentation [facility] [address] [place] [address] [phone] Client Service Administrator: Marcos Yee MD MS 03/09/2024 Documentation [facility] [address] [place] [address] [phone] Client Service Administrator: Marcos Yee MD MS 03/02/2024 External Contact [facility] [address] [place] [address] [phone] Client Service Administrator: Marcos Yee MD MS Paroxysmal atrial fibrillation (HCC) (Primary Dx); MCC (current) use of anticoagulants 03/02/2024 Documentation [facility] [address] [place] [address] [phone] Client Service Administrator: Marcos Yee MD MS 03/01/2024 Orders Only [facility] [address] [place] [phone] Jolanta Morrell MD Examination (Primary Dx) 03/01/2024 Telephone [facility] [address] [place] [phone] Niesha Galindo MA from Last 3 Months Allergies Active Allergy Reactions Criticality Noted Date Comments Propofol Anaphylaxis High 02/21/2022 Umeclidinium-Vilanterol Palpitations High 08/11/2017 Trazodone Other (see comments) 02/02/2022 priapism Ezetimibe Dizziness 11/17/2020 Medications multivitamin (THERAGRAN) tablet Take 1 tablet by mouth once a day. Active nitroglycerin (Nitrostat) 0.[address] 1 TABLET UNDER THE TONGUE EVERY 5 MINUTES FOR UP TO 3 DOSES NEEDED FOR CHEST PAIN.CALL 911 IF PAIN PERSISTS 100 tablet 10:28 AM EST 03/14/20 21 Active acetaminophen (TYLENOL) 325 mg tablet Take 2 tablets (650 mg total) by mouth every 6 hours as needed for pain. 02/03/20 22 Active albuterol 2.5 mg/3 mL (0.083%) nebulizer solution Inhale 1 vial (2.5 mg total) via nebulizer every 6 hours as needed for wheezing or shortness of breath. 3 mL 1 08/02/19 23 Active aspirin 81 mg EC tablet TAKE 1 TABLET(81 MG TOTAL) BY MOUTH ONCE DAILY 90 tablet 3 08/28/19 24 Active warfarin (COUMADIN) 5 mg tablet Take as directed by the Anticoagulation Clinic; not to exceed 5mg daily. 90 tablet 3 12/01/19 24 Active Combivent Respimat 20-100 mcg/actuation inhaler INHALE 1 PUFF BY MOUTH 6 TIMES A DAY 16 g 12/22/19 24 025 Active sotalol (BETAPACE) tablet 80 mg Take 0.5 tablets (40 mg total) by mouth 2 times a day. 90 tablet 3 01/14/20 24 025 Active predniSONE (DELTASONE) 10 mg tablet 6 T POx2d, 5T PO x2d, 4T PO x2d, [id number], 2T PO x2d, 1T POx2d. 42 tablet 02/02/20 Active Additional Information Patient not taking.Reported on 03/18/2024 doxycycline hyclate (VIBRAMYCIN) 100 mg capsule Take 1 capsule (100 mg total) by mouth 2 times a day. 20 capsule 02/02/20 Active Additional Information Patient not taking.Reported on 03/18/2024 tiotropium bromide (SPIRIVA RESPIMAT) 2.5 mcg/actuation mist Inhale 2 puffs (5 mcg total) by mouth once a day. 4 g 3 02/02/20 Active Additional Information Patient not taking.Reported on 03/18/2024 rosuvastatin (CRESTOR) 40 mg tablet Take 1 tablet (40 mg total) by mouth nightly. 90 tablet 3 02/02/20 Active gabapentin (NEURONTIN) 100 mg capsule Take 2 capsules (200 mg total) by mouth 2 (two) times a day. 120 capsule 3 02/09/20 Active Additional Information Patient not taking.Reported on 03/18/2024 ipratropium-albu teroL (DUO-NEB) 0.5-2.5 mg/3 mL nebulizer solutionIndicati ons:COPD exacerbation (HCC) Inhale 3 mL via nebulizer every 6 hours as needed for wheezing or shortness of breath. 120 mL 5 02/20/20 Active levalbuterol (XOPENEX HFA) 45 mcg/actuation inhaler Inhale 2 puffs by mouth every 6 hours as needed for shortness of breath. 15 g 02/25/20 24 Active tamsulosin (FLOMAX) 0.4 mg capsule 12/22/19 24 Active lisinopriL (PRINIVIL,ZESTRI L) 5 mg tablet TAKE 1/2 TABLET BY MOUTH EVERY DAY 45 tablet 3 04/09/19 25 Active fluticasone propionate (FLONASE) 50 mcg/actuation nasal sprayIndications :Allergic rhinitis SHAKE LIQUID AND USE 1 SPRAY IN EACH NOSTRIL TWICE A DAY 16 mL 1 05/29/19 25 Active Active Problems Problem Noted Date Diagnosed Date Other diseases of pulmonary vessels 04/02/2023 Assessment & Plan (12/11/2023 10:37 AM EDT): Arm paresthesia, left 01/03/2023 Assessment & Plan (01/03/2023 8:09 PM EDT): Patient reports that he has whole left arm paresthesia that occurs intermittently and exacerbated when he abduct his arm above his head. He says that this intermittently occurs when he is driving his motorcycle and is bothersome to him. He has had several spine injuries in the past and his symptoms may represent a post traumatic radiculopathy. I therefore would like to refer him to spine surgery for further evaluation. He has a palpable radial and ulnar pulse so I do not believe it is rotated to arterial insufficiency. It is possible that he may have an element of neurogenic TOS however I would like to rule out any cervical pathology prior to working him up for neurogenic TOS which will require physical therapy as the primary medical management. Abscess of skin 12/03/2022 Aftercare following surgery of the circulatory s ystem 02/14/2022 Aortic aneurysm without rupture 02/01/2022 Assessment & Plan (12/11/2023 10:37 AM EDT): Assessment & Plan (01/03/2023 8:10 PM EDT): Mr. Cyrus Lewis is a 62 y.o. male with past medical history of HTN, HLD, CAD/PCI (2015), COPD, adrenal carcinoma sp left adrenalectomy, Atrial fibrillation on coumadin, current smoker, prior ~5.7cm AAA status post EVAR on 02/01/2022 by myself. Patient's annual surveillance duplex ultrasound demonstrated a patent repair with no evidence of endoleak and a stable residual sac size. I plan to continue to follow-up with the patient in 1 year with a repeat EVAR duplex ultrasound. Trigger middle finger of left hand 04/27/2019 Overview (04/27/2019): Added automatically from request for surgery [id number] Tobacco abuse counseling 06/20/2017 Assessment & Plan (06/27/2022 2:41 PM EDT): Patient is a long time smoker who states that he smokes 60-80 cigarettes per day. He has tried several medications previously but states that it didn't work. He was advised to follow up with his PCP with regards to further management and smoking cessation. Prediabetes 05/20/2017 Skin lesion 2017 Assessment & Plan (01/03/2023 8:11 PM EDT): Mr. Cyrus Lewis is a 62 y.o. male with past medical history of HTN, HLD, CAD/PCI (2016), COPD, adrenal carcinoma sp left adrenalectomy, Atrial fibrillation on coumadin, current smoker, prior ~5.7cm AAA status post EVAR on 02/01/2022 by myself. He returns for follow-up surveillance of his EVAR along with complaint of a pubic abscess since surgery asked me 2 weeks ago where I performed a bedside I&D. Since then the patient no longer has pain around this suprapubic abscess site without any reports of drainage purulence. However his tissue does not appear to be granulating like normal and there are papular irregular wound edges that is concerning for possible malignancy such as basal cell carcinoma or squamous cell carcinoma or even melanoma. Because of the irregular appearance of the skin lesion I will refer him to dermatology for further evaluation. Hip pain 12/16/2016 Paroxysmal atrial fibrillation 11/21/2016 Assessment & Plan (12/11/2023 10:37 AM EDT): Controlled, he follows up with cardiology Assessment & Plan (11/10/2020 2:29 PM EDT): Patient states he is monitoring his out warfarin with a home machine and dosing accordingly - will be referred to anticoagulation clinic here. Assessment & Plan (05/30/2020 2:18 PM EST): Continue with sotalol and routine visits. His QTC is normal today. Continue with warfarin. Refer to the anticoagulation clinic. Assessment & Plan (05/25/2019 1:26 PM EST): Continue with sotalol and warfarin. Follow up in 6 months. Assessment & Plan (07/01/2017 3:00 PM EDT): Continue with sotalol and Eliquis for now. We will reassess in 6 months. Personal history of tobacco use, presenting hazards to health 10/18/2016 Assessment & Plan (06/22/2020 2:45 PM EDT): We have spent 5 minutes today discussing the health risks of tobacco use and the health benefits of quitting. I have strongly advised tobacco cessation. We have discussed a variety of strategies to help with quitting. After discussion, our plan for today is continue with current efforts to cut down on tobacco use. Incomplete tear of left rotator cuff 09/23/2016 Wart 09/06/2016 Overview (2017): Left index Tick bite 08/13/2016 Tinea corporis 08/13/2016 Cervical myelopathy 08/06/2016 Assessment & Plan (12/11/2023 10:37 AM EDT): Exertional shortness of breath 06/06/2016 Ringworm 06/06/2016 Shoulder impingement, left 03/28/2016 Numbness and tingling of right arm 03/28/2016 Assessment & Plan (06/22/2020 2:44 PM EDT): Cyrus Lewis is a 60 y.o. male with PMHx significant for adrenal CA s/p laparoscopic left adrenalectomy (Oralia, 2016), CAD s/p PCI, active 3 pack/day tobacco abuse, symptomatic paroxysmal atrial fibrillation on Coumadin, COPD on inhalers but not on home oxygen, hypertension, hyperlipidemia, who presents to my clinic as a referral for a known infrarenal abdominal aortic aneurysm. Per the patient he reports that he is known about his abdominal aortic aneurysm based on an incidental scan done over 5 years ago when the patient recently reports an episode of left-sided facial tingliness and right arm tingling is is concerned for a possible TIA when he was evaluated in the ED. He has no carotid artery stenosis I have requested that he have a carotid duplex ultrasound in clinic when he sees me to discuss about his infrarenal abdominal aortic aneurysm. Patient currently does not have any motor or sensory deficits. Pierson cyst, right 03/14/2016 Tooth abscess 01/25/2016 COPD (chronic obstructive pulmonary disease) Chronic daily headache 01/11/2016 Unsteadiness 01/11/2016 Muscle weakness 01/11/2016 Visual disturbances 01/11/2016 Falls 01/11/2016 Degenerative cervical spinal stenosis 01/11/2016 Hypotension 12/28/2015 Migraine headache 11/30/2015 Scotoma 11/30/2015 Neck pain 11/23/2015 Neck muscle spasm 11/23/2015 Stress headache 11/23/2015 Pre-op testing 09/25/2015 Abnormal finding on thyroid function test 2015 Anemia 07/05/2015 Vitamin d deficiency 07/05/2015 Sinusitis 06/28/2015 Lyme disease 06/16/2015 Hyperlipidemia 06/07/2015 Behavior concern 06/02/2015 Fatigue 06/02/2015 HTN (hypertension) 06/02/2015 Assessment & Plan (12/11/2023 10:37 AM EDT): Assessment & Plan (11/10/2020 2:27 PM EDT): Blood pressures reviewed - highest blood pressure recorded of 150 / 92. Blood pressures mostly in the 120s-140s range. On lisinopril 5 mg daily Assessment & Plan (05/30/2020 2:18 PM EST): Under good control today. Continue with his current medications. Coronary artery disease invo [employer] with angina pectoris 06/02/2015 Assessment & Plan (12/11/2023 10:37 AM EDT): Assessment & Plan (11/10/2020 2:26 PM EDT): Will order cardiac catheterization given equivocal stress, anginal symptoms without relief in last 6 months. Will order pre-catheterization lab testing Patient notified to hold warfarin a day prior to C with possible PCI. Assessment & Plan (06/22/2020 2:43 PM EDT): Cyrus Lewis is a 60 y.o. male with PMHx significant for adrenal CA s/p laparoscopic left adrenalectomy (Oralia, 2016), CAD s/p PCI, active 3 pack/day tobacco abuse, symptomatic paroxysmal atrial fibrillation on Coumadin, COPD on inhalers but not on home oxygen, hypertension, hyperlipidemia, who presents to my clinic as a referral for a known infrarenal abdominal aortic aneurysm. The patient reports that he is having ongoing daily angina with a history of coronary artery disease status post stents. I unfortunately do not have access to the patient's cardiology records from his director ambulatory in [place] Dr. Daugherty. Patient has asked to transfer of cardiology care here to [facility]. I have placed a request for a general cardiology referral here. Abdominal aortic aneurysm (AAA) without rupture 06/02/2015 Assessment & Plan (12/11/2023 10:37 AM EDT): Stable, has seen vascular Assessment & Plan (06/27/2022 2:38 PM EDT): Mr Cyrus Lewis is a 62-year-old male with a prior infrarenal AAA status post EVAR on 02/01/[address] Mancera who presents to clinic today for his 6 months surveillance with ABIs. Unfortunately, he did not get his adominal duplex done today. However, ABIs were 1.02/0.9 right versus left with toe pressures of 73 and 78mmHg. He does not report leg pain or claudication symptoms but does have toe cramping at night before bed which doesn't seem arterial in nature. Patient was advised to follow up with his PCP for further evaluation for possible restless leg syndrome. Assessment & Plan (12/20/2021 8:48 PM EDT): This is a 61-year-old male with history significant for adrenal carcinoma status post left adrenalectomy in 2015, CAD s/p PCI, active tobacco use, A. fib on Coumadin, COPD not on home O2, HTN, HLD who has been followed by Dr. Joseline Mancera's clinic for an infrarenal AAA. Today on CT, he demonstrates an increase in his infrarenal aortic aneurysm diameter. While it does not meet absolute size for repair, it does potentially demonstrate rapid expansion as it has grown approximately 0.5 cm 5 months. It also is approaching size criteria as it now approaches 5.3 cm. The patient is relatively young but does have significant pulmonary dysfunction and has poor pulmonary function tests. Given his pulmonary and cardiac comorbidities he is at high risk for open repair and, he is an appropriate candidate for an endovascular repair based on medical status and anatomy on CT. He will undergo on EVAR for repair of his infrarenal AAA. We explained that his aneurysm is quite related to his smoking history and spent extensive time counseling him on smoking cessation as well. Assessment & Plan (07/14/2020 5:51 PM EDT): Cyrus Lewis is a 60 y.o. male with PMHx significant for adrenal CA s/p laparoscopic left adrenalectomy (Oralia, 2015), CAD s/p PCI, active 3 pack/day tobacco abuse, symptomatic paroxysmal atrial fibrillation on Coumadin, COPD on inhalers but not on home oxygen, hypertension, hyperlipidemia, who presents to my clinic as a referral for a known infrarenal abdominal aortic aneurysm. Based on his recent CTA, the infrarenal AAA is 5cm in max AP diameter, which does not meet size threshold for elective repair. I explained to the pt that mortality benefit is observed for AAA >5.5cm. Given the pt has significant comorbidities, dialy angina and poorly controlled COPD, acitve tobacco abuse, I receommend we monitored his AAA with a DUS in 6 months until he is better medically optimize. My office will reach out to [facility] to see if we can get an expedited clinic evaluation for the pt. Assessment & Plan (06/22/2020 2:42 PM EDT): Cyrus Lewis is a 60 y.o. male with PMHx significant for adrenal CA s/p laparoscopic left adrenalectomy (Oralia, 2015), CAD s/p PCI, active 3 pack/day tobacco abuse, symptomatic paroxysmal atrial fibrillation on Coumadin, COPD on inhalers but not on home oxygen, hypertension, hyperlipidemia, who presents to my clinic as a referral for a known infrarenal abdominal aortic aneurysm. Based on my evaluation the patient I believe that he has an asymptomatic infrarenal abdominal aortic aneurysm that possibly may meet size criteria for elective repair. However unable to determine the true size of the patient's infrarenal abdominal aortic aneurysm I requested a CT angio of the abdomen and pelvis for preoperative planning in addition to discussed with the patient the risk benefits of proceeding for repair versus continued surveillance. I recommend that he continue taking his aspirin and statin and Coumadin. Adrenal adenoma 06/02/2015 Exposure to bat without known bite 06/02/2015 Paresthesias/numbness 06/01/2015 Hyperglycemia 06/01/2015 Muscle ache 06/01/2015 Tremor 06/01/2015 Type 2 diabetes mellitus wit h other specified complication, without long-term current use of insulin Assessment & Plan (12/11/2023 10:37 AM EDT): Has been controlled, due for labs Orders: Comprehensive Metabolic Panel; Future Hemoglobin A1c; Future Lipid Panel w/Reflex to Direct LDL; Future TSH Reflex Free T4; Future Comprehensive Metabolic Panel Hemoglobin A1c Lipid Panel w/Reflex to Direct LDL TSH Reflex Free T4 Abnormal PFT MELGAR (dyspnea on exertion) Abnormal PFTs Resolved Problems Problem Noted Date Diagnosed Date Resolved Date Claudication of both lower extremities 11/18/2017 04/14/2020 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 9 Immunizations Immunization Administration Dates Next Due COVID-19, Pfizer, mRNA, Biva lent Booster, PF, 30 mcg/0.3 mL dose (for age 12 y and up) 02/25/2022 Covid-19 Monovalent Vaccine, Moderna, mRNA, PF 11/20/2020,07/12/2020,06/13/2020 INFLUENZA, SPLIT VIRUS, TRIVALENT, PF 12/28/2015 ,12/23/2014 Influenza, Injectable, Madin Sagle Canine Kidney, Preservative Free, Quadrivalent 02/03/2023,12/31/2021,12/17/2016 Influenza, Injectable, Quadr ivalent, Contains Preservative 01/11/2019 Influenza, Injectable, Quadr ivalent, Preservative Free 01/24/2021,12/16/2019,01/01/2018 Influenza, Trivalent, MDV, Injectable 02/02/2024 ,01/06/2014,03/14/2012 Pneumococcal Conjugate Vaccine, 13 Valent 2014 Pneumococcal Polysaccharide Vaccine, 23 Valent 01/11/2019 RSV, Bivalent, Protein Subun it RSVpreF, Diluent Reconstituted, 0.5 mL, PF 02/03/2023 Rabies Vaccine, for Intramus cular Injection RETIRED CODE 06/05/2015,05/29/2015 Tetanus Toxoid, Reduced Diph theria Toxoid, and Acellular Pertussis Vaccine, Adsorbed 01/11/2019 Social History Tobacco Use Types Packs/Day Years Used Date Smoking Tobacco: Every Day Cigarettes 2 45 Smokeless Tobacco: Never Tobacco Cessation:Ready to Q uit: Not Asked; Counseling Given: Not Answered Comments:2-3 ppd every day-rolls own cigarettes Alcohol Use Standard Drinks/Week Comments Not Currently 0 (1 standard drink = 0.6 oz pur e alcohol) 1982 [facility] Utilities Answer Date Recorded In the past 12 months has th e electric, gas, oil, or water company threatened to shut off services in your [...] file Not on file Not on file Last Filed Vital Signs Vital Sign Reading Time Taken Comments Blood Pressure 147/85 03/18/2024 1:02 PM EST Pulse 74 03/18/2024 1:02 PM EST Temperature 36.7 ??C (98.1 ??F) 08/08/2023 11:14 AM E DT Respiratory Rate 18 03/18/2024 1:02 PM EST Oxygen Saturation 95% 03/18/2024 1:02 PM EST Inhaled Oxygen Concentration - - Weight 107 kg (235 lb 14.3 oz) 03/18/2024 1:02 P M EST Height 185.4 cm (6' 1 ) 03/18/2024 1:02 PM EST Body Mass Index 31.12 03/18/2024 1:02 PM EST Functional Status * Does this person have serious difficulty walking or climbing stairs? Answer Date of Assessment Author Yes 01/21/2017 12:33 PM EDT Plan of Treatment Upcoming Encounters Date Type Department Care Team (Late st Contact Info) Description 08/04/2024 1:00 PM EDT Appointment [facility] [address] [place] [phone] Client Service Administrator: Alejandra Barnes, LEE Camacho [address] [place] [address] 09/21/2024 1:00 PM EDT Follow-Up [facility] [address] [place] [phone] Client Service Administrator: Lisy Varma NP [address] [place] [phone] 02/24/2025 1:00 PM EST Appointment [facility] Vascular [facility] [address] [place] [phone] 02/24/2025 2:00 PM EST Follow-Up [facility] ACC Building Vascular Surgery [address] [place] [phone] Client Service Administrator: Joseline May MD [address] [place] [phone] 03/29/2025 10:00 AM EST Follow-Up [facility] [address] [place] [phone] Sebastian Oneal MD [address] [place] [id number] Medical Devices Implanted Type Area Marquetry Worker Device Identifier Shelf Expiration Date Model / Serial / Lot Graft Endovascular Aaa Bifurcated Main Body [id number] Zenith Flex - [id number] Implanted:Qty: 1 on 02/01/2022 by Joseline Mancera MD at [facility] Graft Aorta [employer] 06/06/2023 [id number] / / [id number] Description:Abdominal aorta Graft Endovascular Iliac Leg Aaa [id number] Zenith Spiral-Z - [id number] Implanted:Qty: 1 on 02/01/2022 by Joseline Mancera MD at [facility] Graft [employer] 12/06/2024 [id number] / / [id number] Description:Left iliac Graft Endovascular Iliac Leg Aaa [id number] Zenith Spiral-Z - [id number] Implanted:Qty: 1 on 02/01/2022 by Joseline Mancera MD at [facility] Graft [employer] 03/13/2023 [id number] / / [id number] Description:Left iliac Graft Endovascular Iliac Leg Aaa [id number] Zenith Spiral-Z - [id number] Implanted:Qty: 1 on 02/01/2022 by Joseline Mancera MD at [facility] Graft [employer] 01/14/2025 [id number] / / [id number] Description:Right iliac System Closure And Repair Suture-Mediated Perclose Prostyle - [id number] Implanted:Qty: 2 on 02/01/2022 by Joseline Mancera MD at [facility] Implant Right: Groin [employer] 11/05/2023 [id number] / / [id number] System Closure And Repair Suture-Mediated Perclose Prostyle - [id number] Implanted:Qty: 2 on 02/01/2022 by Joseline Mancera MD at [facility] Implant Left: Groin [employer] 11/05/2023 [id number] / / [id number] Procedures * Due to [place] state law, this organization might not be sharing negative HIV tests. Procedure Name Priority Date/Time Associated Diagnosis Comments ECG 12-LEAD Routine 03/18/2024 1:08 PM EST Paroxysmal atrial fibrillation HEMOGLOBIN A1C Routine 02/02/2024 12:11 PM EDT Type 2 diabetes mellitus with other specified complication, without long-term current use of insulin (HCC) COMPREHENSIVE METABOLIC PANEL Routine 02/02/2024 12:11 PM EDT Type 2 diabetes mellitus with other specified complication, without long-term current use of insulin (HCC) MICROALBUMIN, RANDOM URINE WITH CREATININE Routine 02/02/2024 12:00 AM EDT Type 2 diabetes mellitus with other specified complication, without long-term current use of insulin (HCC) COLONOSCOPY 06/18/2023 CT LUNG CANCER SCREENING 12 MONTHS ANNUAL FOLLOW UP Routine 06/02/2023 8:17 AM EST Cigarette nicotine dependence, uncomplicated CT ANGIOGRAM ABDOMEN PELVIS W WO CONTRAST Routine 03/25/2022 2:36 PM EST Aftercare following surgery of the circulatory system HEPATITIS C ANTIBODY W/REFLEX TO HCV RNA, QUANTITATIVE PCR Routine 07/16/2018 10:38 AM EDT Accident caused by hypodermic needle, initial encounter from Last 3 Months or Most Recently Relevant to Health Maintenance Results * Due to [place] state law, this organization might not be sharing negative HIV tests. * ECG 12 lead (03/18/2024 1:08 PM EST) Ventricular Rate EKG 74 BPM MUSE EKG Atrial Rate 74 BPM MUSE EKG VA Interval 180 ms MUSE EKG QRS Interval 84 ms MUSE EKG QT Interval 400 ms MUSE EKG QTC Interval 444 ms MUSE EKG P Hester 51 degrees MUSE EKG R Hester 43 degrees MUSE EKG T Wave Hester 62 degrees MUSE EKG 03/18/2024 1:08 PM EST 03/19/2024 5:00 PM EST Impressions MUSE EKG - 03/19/2024 5:00 PM EST SINUS RHYTHM Confirmed by Slade Vallejo ([id number]) on 03/19/2024 5:00:11 PM us Kal Posada MD ECG ORDERABLES Final Result MUSE EKG * (ABNORMAL) Hemoglobin A1c (02/02/2024 12:11 PM EDT) Hemoglobin A1C 7.1(H) <5.7 % of total Hgb 02/03/2024 3:42 AM EDT [facility] Comment: For someone without known diabetes, a hemoglobin A1c value of 6.5% or greater indicates that they may have diabetes and this should be confirmed with a follow-up test. For someone with known diabetes, a value <7% indicates that their diabetes is well controlled and a value greater than or equal to 7% indicates suboptimal control. A1c targets should be individualized based on duration of diabetes, age, comorbid conditions, and other considerations. Currently, no consensus exists regarding use of hemoglobin A1c for diagnosis of diabetes for children. ?? eAG (MG/DL) 157 mg/dL 02/03/2024 3:42 AM EDT [facility] eAG (MMOL/L) 8.7 mmol/L 02/03/2024 3:42 AM EDT [facility] Blood Structure of peripheral vein / Unknown 02/02/2024 12:11 PM EDT 02/03/2024 2:12 AM EDT [facility] - 02/03/2024 5:45 AM EDT SPECIMEN COLLECTED AT PROVIDER OFFICE. us Jolanta Morrell MD LAB BLOOD ORDERABLES Final Result [facility] [address] [facility] 3rd Floor, [place] [address], [facility] [address] [place] [address] * (ABNORMAL) Comprehensive Metabolic Panel (02/02/2024 12:11 PM EDT) Glucose 96 65 - 99 mg/dL 02/03/2024 5:40 AM EDT [facility] Comment: ? Fasting reference interval BUN 17 7 - 25 mg/dL 02/03/2024 5:40 AM EDT [facility] Creatinine 0.72 0.70 - 1.35 mg/dL 02/03/2024 5:40 AM EDT [facility] eGFR 103 > OR = 60 mL/min/1. 73m2 02/03/2024 5:40 AM EDT [facility] Bun/Creatinine Ratio SEE NOTE: 6 - 22 (calc) 02/03/2024 5:40 AM [facility] Comment: ?? Not Reported: BUN and Creatinine are within ?? reference range. ? Sodium 140 135 - 146 mmol/L 02/03/2024 5:40 AM [facility] Potassium 4.2 3.5 - 5.3 mmol/L 02/03/2024 5:40 AM [facility] Chloride 102 98 - 110 mmol/L 02/03/2024 5:40 AM [facility] Carbon Dioxide 33(H) 20 - 32 mmol/L 02/03/2024 5:40 AM [facility] Calcium 9.5 8.6 - 10.3 mg/dL 02/03/2024 5:40 AM [facility] Protein, Total 6.8 6.1 - 8.1 g/dL 02/03/2024 5:40 AM [facility] Albumin 4.6 3.6 - 5.1 g/dL 02/03/2024 5:40 AM [facility] Globulin 2.2 1.9 - 3.7 g/dL (calc) 02/03/2024 5:40 AM [facility] Albumin/Globuli n Ratio 2.1 1.0 - 2.5 (calc) 02/03/2024 5:40 AM [facility] Bilirubin, Total 0.3 0.2 - 1.2 mg/dL 02/03/2024 5:40 AM [facility] Alkaline Phosphatase 119 35 - 144 U/L 02/03/2024 5:40 AM [facility] AST 21 10 - 35 U/L 02/03/2024 5:40 AM [facility] ALT 28 9 - 46 U/L 02/03/2024 5:40 AM [facility] Blood Structure of peripheral vein / Unknown 02/02/2024 12:11 PM EDT 02/03/2024 3:06 AM EDT Narrative [facility] - 02/03/2024 5:45 AM EDT SPECIMEN COLLECTED AT PROVIDER OFFICE. Jolanta Morrell MD LAB BLOOD ORDERABLES Final Result Performing Organization Address [facility]/ZIP Co de Phone Number [facility] [address], [place] [address], [place] [address] [address] * (ABNORMAL) Microalbumin, Random Urine with Creatinine (02/02/2024 12:00 AM EDT) Pathologist [facility] Creatinine, Random Urine 140 20 - 320 mg/dL 02/03/2024 4:28 PM EDT [facility] Microalbumin 5.0 mg/dL 02/03/2024 4:28 PM EDT [facility] Comment: Reference Range Not established Microalbumin/Crea tinine Ratio, Random Urine 36(H) <30 mg/g creat 02/03/2024 4:28 PM EDT [facility] Comment: The ADA defines abnormalities in albumin excretion as follows: Albuminuria Category ?Result (mg/g creatinine) Normal to Mildly increased ?? <30 Moderately increased ? 30-299 Severely increased ? > OR = 300 The ADA recommends that at least two of three specimens collected within a 3-6 month period be abnormal before considering a patient to be within a diagnostic category. Urine Voided urine specimen / Unknown 02/02/2024 02/03/2024 4:27 AM EDT us Jolanta Morrell MD LAB URINE ORDERABLES Final Result Performing Organization Address City/[facility]/ZIP Co de Phone Number [facility] [address], [place] [address], [place] [phone] [place] [address] [address] * COLONOSCOPY (06/18/2023) Narrative Procedure Note Lisy Gentile MD - 06/18/2023 2:17 PM EDT [facility] Gastroenterology Patient Name: Cyrus Lewis Procedure Date: 06/18/2023 2:17 PM Date of : 1960 Admit Type: Outpatient Age: 63 Room: [place] [address] Gender: Male Note Status: Finalized Attending MD: Lisy Gentile , Procedure: Colonoscopy Indications: High risk colon cancer surveillance: Personal history of colonicpolyps Comorbidities Providers: Lisy Gentile Referring MD: Jolanta Morrell MD (Referring MD) Requesting Provider: Medicines: Midazolam 5 mg IV, Fentanyl 125 micrograms IV Complications: No immediate complications. Estimated Blood Loss: Estimated blood loss: none. Procedure: Pre-Anesthesia Assessment: - Prior to the procedure, a History and Physicalwas performed, and patient medications and allergieswere reviewed. The patient's tolerance of previous anesthesia was also reviewed. The risks andbenefits of the procedure and the sedation options and risks were discussed with the patient. All questions were answered, and informed consent was obtained. Prior Anticoagulants: The patient has taken Coumadin (warfarin), last dose was 7 days prior toprocedure. ASA Grade Assessment: III - A patient with severe systemic disease. After reviewing the risks and benefits, the patient was deemed in satisfactory condition to undergo the procedure. After I obtained informed consent, the scope was passed under direct vision. Throughout theprocedure, the patient's blood pressure, pulse, and oxygen saturations were monitored continuously. The Colonoscope was introduced through the anus and advanced to the cecum, identified by appendiceal orifice and ileocecal valve. The colonoscopy was performed without difficulty. The patient tolerated the procedure well. The quality of the bowel preparation was evaluated using the BBPS (BostonBowel Preparation Scale) with scores of: Right Colon = 2 (minor amount of residual staining, small fragmentsof stool and/or opaque liquid, but mucosa seen well), Transverse Colon = 2 (minor amount of residual staining, small fragments of stool and/or opaque liquid, but mucosa seen well) and Left Colon = 2 (minor amount of residual staining, small fragmentsof stool and/or opaque liquid, but mucosa seen well).The total BBPS score equals 6. The quality of the bowel preparation was inadequate. The ileocecal valve, appendiceal orifice, and rectum werephotographed. Findings: Hemorrhoids were found on perianal exam. Multiple small-mouthed diverticula were found in the sigmoid colon. A 6 mm polyp was found in the ascending colon. The polyp was sessile. The polyp was removed with a cold snare. Resection and retrieval were complete. A 2 mm polyp was found in the transverse colon. The polyp wassessile. The polyp was removed with a cold biopsy forceps. Resection and retrieval were complete. A 2 mm polyp was found in the descending colon. The polyp wassessile. The polyp was removed with a cold biopsy forceps. Resection and retrieval were complete. A 5 mm polyp was found in the descending colon. The polyp wassessile. The polyp was removed with a cold snare. Resection and retrieval were complete. Five sessile polyps were found in the rectum and sigmoid colon. The polyps were 2 mm in size. These polyps were removed with a coldbiopsy forceps. Resection and retrieval were complete. An 8 mm polyp was found in the rectum. The polyp wassemi-pedunculated. The polyp was removed with a cold snare. Resection and retrieval were complete. Three sessile polyps were found in the rectum. The polyps were 3 to 6mm in size. These polyps were removed with a cold snare. Resection and retrieval were complete. Impression: 13 polyps resected. Distal rectal polyp likely the source of bleeding. Recommend repeat within 6months with extended prep - Preparation of the colon was inadequate. - Hemorrhoids found on perianal exam. - Diverticulosis in the sigmoid colon. - One 6 mm polyp in the ascending colon, removedwith a cold snare. Resected and retrieved. - One 2 mm polyp in the transverse colon, removedwith a cold biopsy forceps. Resected and retrieved. - One 2 mm polyp in the descending colon, removedwith a cold biopsy forceps. Resected and retrieved. - One 5 mm polyp in the descending colon, removedwith a cold snare. Resected and retrieved. - Five 2 mm polyps in the rectum and in the sigmoid colon, removed with a cold biopsy forceps. Resected and retrieved. - One 8 mm polyp in the rectum, removed with a cold snare. Resected and retrieved. - Three 3 to 6 mm polyps in the rectum, removedwith a cold snare. Resected and retrieved. Recommendation: - Await pathology results. - Repeat colonoscopy in 6 months because the bowel preparation was suboptimal. - For future colonoscopy the patient will requirean extended preparation. If there are any questions, please contact the brim pouncer. Lisy Gentile, 06/18/2023 3:25:35 PM This report has been signed electronically. Number of Addenda: 0 Note Initiated On: 06/18/2023 2:17 PM us Lisy Gentile MD [employer] PROCEDURES Final Resu lt * CT Lung Cancer Screening 12 Months Annual Follow Up (06/02/2023 8:17 AM EST) Anatomical Region Laterality Modality Chest Computed Tomogra phy 06/02/2023 9:24 AM EST Impressions 06/08/2023 3:40 PM EST No suspicious pulmonary nodules or masses. Mild upper lobe predominant pulmonary emphysema, mild chronic airways disease. Lung-RADS Category 1: Negative- less than 1% probability ??of malignancy. Lung-RADS Category Description 1: Continue annual screening with CT Lung Screening ??in 12 months Findings under this category can include: ?? -No lung nodules or nodule(s) with benign calcification pattern ? Modifier No clinically significant or potentially significant findings Schedule lung cancer screening CT/follow-up CT: ----- ----- This report uses Lung RADS version 1.1 (2019) [email or web address]?la=en If this radiology report contains a blank impression section, it is an incomplete radiology report. ??Please contact the interpreting radiologist or applicable radiology division as soon as possible to obtain the completed interpretation. ? Workstation ID: [id number] Up-to-date CT equipment and radiation dose reduction techniques were employed. CTDIvol: 3.3 mGy. DLP: 120 mGy-cm. Narrative 06/08/2023 3:[address] LUNG CANCER SCREENING 12 MONTHS ANNUAL FOLLOW UP INDICATION: CT lung cancer screening. COMPARISON: Screening CT from 10/04/[address] from 03/25/2022 TECHNIQUE: ??Non-enhanced chest CT. Images were acquired with helical acquisition and low dose technique. Multiplanar reconstructions including MIP, MinIP and Slab images were reviewed. Note that low dose technique uses a low level of radiation exposure that provides adequate lung detail but limited image quality in the mediastinum and upper abdomen. For radiation dose control at least one of the following techniques was used in this procedure (1) Automated exposure control (2) Adjustment of the mA and/or kV according to patient size (3) Use of iterative reconstruction technique. FINDINGS: BASE OF NECK: No abnormalities of the thoracic inlet. LUNGS AND PLEURA: Mild bilateral apical scarring. Mild upper lobe predominant centrilobular pulmonary emphysema. Mild thickening and irregularities of the airway mendenhall. Mild respiratory motion at the lung bases. MEDIASTINUM: Mild aortic wall calcifications. Mild coronary calcifications. No abnormalities of the posterior mediastinum. NODES: No adenopathy. UPPER ABDOMEN: No abnormalities of the upper abdomen. Partially imaged aortic stent graft. BONES/SOFT TISSUES: Mild degenerative vertebral disease. Resulting Agency Comment [id number] Procedure Note Karson Forrester MD PhD - 06/08/2023 CT LUNG CANCER SCREENING 12 MONTHS ANNUAL FOLLOW UP INDICATION: CT lung cancer screening. COMPARISON: Screening CT from 10/04/[address] from 03/25/2022 TECHNIQUE: Non-enhanced chest CT. Images were acquired with helicalacquisition and low dose technique. Multiplanar reconstructions includingMIP, MinIP and Slab images were reviewed. Note that low dose techniqueuses a low level of radiation exposure that provides adequate lung detailbut limited image quality in the mediastinum and upper abdomen. For radiation dose control at least one of the following techniques wasused in this procedure (1) Automated exposure control (2) Adjustment ofthe mA and/or kV according to patient size (3) Use of iterativereconstruction technique. FINDINGS: BASE OF NECK: No abnormalities of the thoracic inlet. LUNGS AND PLEURA: Mild bilateral apical scarring. Mild upper lobe predominant centrilobular pulmonary emphysema. Mild thickening and irregularities of the airway mendenhall. Mild respiratory motion at the lung bases. MEDIASTINUM: Mild aortic wall calcifications. Mild coronary calcifications. No abnormalities of the posterior mediastinum. NODES: No adenopathy. UPPER ABDOMEN: No abnormalities of the upper abdomen. Partially imaged aortic stent graft. BONES/SOFT TISSUES: Mild degenerative vertebral disease. IMPRESSION: No suspicious pulmonary nodules or masses. Mild upper lobe predominantpulmonary emphysema, mild chronic airways disease. Lung-RADS Category 1: Negative- less than 1% probability of malignancy. Lung-RADS Category Description 1: Continue annual screening with CT Lung Screening in 12 months Findings under this category can include: -No lung nodules or nodule(s) with benign calcification pattern Modifier No clinically significant or potentially significant findings Schedule lung cancer screening CT/follow-up CT: ----- ----- This report uses Lung RADS version 1.1 (2019) [email or web address]?la=en If this radiology report contains a blank impression section, it is anincomplete radiology report. Please contact the interpreting radiologistor applicable radiology division as soon as possible to obtain thecompleted interpretation. Workstation ID: [id number] Up-to-date CT equipment and radiation dose reduction techniques wereemployed. CTDIvol: 3.3 mGy. DLP: 120 mGy-cm. Jolanta Morrell MD IMG CT PROCEDURES Final Re sult * CT ANGIOGRAM ABDOMEN PELVIS W WO CONTRAST (03/25/2022 2:36 PM EST) Anatomical Region Laterality Modality Body Computed Tomogra phy 03/25/2022 3:31 PM EST Impressions 03/26/2022 11:24 AM EST SP EVAR with no endoleak.. If this radiology report contains a blank impression section, it is an incomplete radiology report. ??Please contact the interpreting radiologist or applicable radiology division as soon as possible to obtain the completed interpretation. ? Workstation ID: [id number] Up-to-date CT equipment and radiation dose reduction techniques were employed. CTDIvol: 1.4 - 18.2 mGy. DLP: 3187 mGy-cm.The following accession numbers are related to this dose report [id number] [facility] 03/26/2022 11:24 AM EST EXAMINATION: CT ANGIOGRAM ABDOMEN PELVIS W WO CONTRAST INDICATION: Follow-up ??EVAR infrarenal abdominal aortic aneurysm. TECHNIQUE: Images of the abdomen and pelvis were obtained without intravenous contrast. Subsequently, intravenous contrast was administered and arterial phase images were obtained. Coronal and sagittal reformats were generated. 3D postprocessed reformats were also created. COMPARISON: CT angiogram abdomen/pelvis 11/27/2021. FINDINGS: Vasculature: There is diffuse calcified and noncalcified atherosclerosis of the infrarenal abdominal aorta and major branch vessels. SP EVAR infrarenal. The bilateral limbs are patent. There is no evidence of endoleak. ??There is an infrarenal, fusiform abdominal aortic aneurysm measuring up to 5.3 cm AP x 5.0 cm TRV (series 8; image 81), compared to 5.6 x 5.2 cm from 11/27/2021 when measured in similar fashion. The celiac trunk, SMA and YAHAIRA are patent. There is conventional hepatic arterial anatomy. There is one left renal artery which is patent. There is one right renal artery which is patent. There are severe atherosclerotic calcifications of the right common iliac artery with resultant mild stenosis. There are mild atherosclerotic calcifications of the left common iliac artery which is patent and normal in caliber. There are mild atherosclerotic calcifications of the external iliac, internal iliac, and common femoral arteries bilaterally which remain patent and normal in caliber.. The IVC is unremarkable. Note is made of circumaortic left renal vein. Lower Thorax: The lung bases are clear. The heart is normal in size, with coronary artery calcifications. There is no pericardial effusion. Hepatobiliary: Unchanged 1 cm arterially enhancing lesion in hepatic segment II (series 8; image 31), likely represents a flash filling hemangioma. No biliary ductal dilatation. The gallbladder is unremarkable. Spleen: No splenomegaly. Calcified splenic granulomas. Pancreas: No inflammation or ductal dilatation. Adrenals: Status post left adrenalectomy. Unchanged thickening of the right adrenal gland. Kidneys/Ureters: The kidneys enhance symmetrically. Unchanged left renal cysts, the largest of which measures up to 4.1 cm. No hydronephrosis or renal calculi. Pelvic organs/Bladder: The urinary bladder is unremarkable. The prostate gland is enlarged. Peritoneum/Retroperitoneum: No free air or fluid. Lymph nodes: No lymphadenopathy. GI Tract: Sigmoid and descending colonic diverticulosis, without evidence of acute diverticulitis. No bowel distention or wall thickening. The appendix is normal. Bones and Soft Tissues: Multilevel degenerative changes throughout the spine. Old right posterior 10th rib fracture. No acute fracture. No suspicious osseous lesions. Soft tissues are unremarkable. Resulting Agency Comment [id number] Procedure Note Frantz Squires MD - 03/26/2022 EXAMINATION: CT ANGIOGRAM ABDOMEN PELVIS W WO CONTRAST INDICATION: Follow-up EVAR infrarenal abdominal aortic aneurysm. TECHNIQUE: Images of the abdomen and pelvis were obtained withoutintravenous contrast. Subsequently, intravenous contrast was administeredand arterial phase images were obtained. Coronal and sagittal reformatswere generated. 3D postprocessed reformats were also created. COMPARISON: CT angiogram abdomen/pelvis 11/27/2021. FINDINGS: Vasculature: There is diffuse calcified and noncalcified atherosclerosisof the infrarenal abdominal aorta and major branch vessels. SP EVARinfrarenal. The bilateral limbs are patent. There is no evidence ofendoleak. There is an infrarenal, fusiform abdominal aortic aneurysmmeasuring up to 5.3 cm AP x 5.0 cm TRV (series 8; image 81), compared to5.6 x 5.2 cm from 11/27/2021 when measured in similar fashion. The celiactrunk, SMA and YAHAIRA are patent. There is conventional hepatic arterialanatomy. There is one left renal artery which is patent. There is oneright renal artery which is patent. There are severe atheroscleroticcalcifications of the right common iliac artery with resultant mildstenosis. There are mild atherosclerotic calcifications of the left commoniliac artery which is patent and normal in caliber. There are mildatherosclerotic calcifications of the external iliac, internal iliac, andcommon femoral arteries bilaterally which remain patent and normal incaliber.. The IVC is unremarkable. Note is made of circumaortic left renal vein. Lower Thorax: The lung bases are clear. The heart is normal in size, withcoronary artery calcifications. There is no pericardial effusion. Hepatobiliary: Unchanged 1 cm arterially enhancing lesion in hepaticsegment II (series 8; image 31), likely represents a flash fillinghemangioma. No biliary ductal dilatation. The gallbladder isunremarkable. Spleen: No splenomegaly. Calcified splenic granulomas. Pancreas: No inflammation or ductal dilatation. Adrenals: Status post left adrenalectomy. Unchanged thickening of theright adrenal gland. Kidneys/Ureters: The kidneys enhance symmetrically. Unchanged left renalcysts, the largest of which measures up to 4.1 cm. No hydronephrosis orrenal calculi. Pelvic organs/Bladder: The urinary bladder is unremarkable. The prostategland is enlarged. Peritoneum/Retroperitoneum: No free air or fluid. Lymph nodes: No lymphadenopathy. GI Tract: Sigmoid and descending colonic diverticulosis, without evidenceof acute diverticulitis. No bowel distention or wall thickening. Theappendix is normal. Bones and Soft Tissues: Multilevel degenerative changes throughout thespine. Old right posterior 10th rib fracture. No acute fracture. Nosuspicious osseous lesions. Soft tissues are unremarkable. IMPRESSION: SP EVAR with no endoleak.. If this radiology report contains a blank impression section, it is anincomplete radiology report. Please contact the interpreting radiologistor applicable radiology division as soon as possible to obtain thecompleted interpretation. Workstation ID: [id number] Up-to-date CT equipment and radiation dose reduction techniques wereemployed. CTDIvol: 1.4 - 18.2 mGy. DLP: 3187 mGy-cm.The followingaccession numbers are related to this dose report [id number] Joseline Mancera MD [facility] CT PROCEDURES Final Resul t * Hepatitis C Antibody w/Reflex to PCR (07/16/2018 10:38 AM EDT) Hepatitis C Antibody NON-REACT ALY NON-REACT ALY 07/16/2018 7:28 PM EDT [employer] Signal To Cut-Off 0.01 <1.00 07/16/2018 7:28 PM EDT [employer] Comment: HCV antibody was non-reactive. There is no laboratory evidence of HCV infection. In most cases, no further action is required. However, if recent HCV exposure is suspected, a test for HCV RNA (test code 34525) is suggested. For additional information please refer to http://education.[employer]/faq/WWN54y8 (This link is being provided for informational/ educational purposes only.) Blood specimen (specimen) Structure of peripheral vein / Unknown 07/16/2018 10:38 AM EDT 07/16/2018 3:17 PM EDT Jolanta Morrell MD LAB BLOOD ORDERABLES Final Result [facility] [address] [facility] [address] [facility] 3rd Floor, [place] [address], [facility] [address] [place] [address] from Last 3 Months or Most Recently Relevant to Health Maintenance Insurance MEDICARE [facility] Advance Directives * Full Code (Latest Code Status on File) Date Activated Date Inactivated Comments 02/01/2022 3:54 PM 02/03/2022 2:10 PM * Full Code Date Activated Date Inactivated Comments 11/17/2020 9:00 AM 11/17/2020 1:54 PM * Full Code Date Activated Date Inactivated Comments 11/17/2020 6:37 AM 11/17/2020 9:00 AM * Presumed Full Code Date Activated Date Inactivated Comments 05/02/2020 1:41 AM 05/02/2020 4:14 PM Care Teams Mrb Engineer Relationship Specialty Start Date End Date Jolanta Morrell MD [address] [place] [address] PCP - General Family Medicine 10/28/18
--- OUTSIDE RECORDS SUMMARY | 2024-06-01 13:52 | XMS_ITS | Encounter Summary ---
Author Organization [facility] Address [address] [place] [address] Care Team Providers Care Director Retail Brand Development Name Role Phone Jolanta Morrell MD Primary Care Provider +1- [phone] Encounter Details Date Type Department Care Team (Late st Contact Info) Description 06/15/2015 Documentation [facility] Building Vascular Surgery [address] [place] [address] Field Assistant: Dawson Mccarty MD [address] [place] [address] Social History Tobacco Use Types Packs/Day Years [...] Info) Description 08/04/2024 1:00 PM EDT Appointment [facility] Otolaryngology Clinic [address] [place] [address] Field Assistant: Kal Alicea PA [address] [place] [address] 09/21/2024 1:00 PM EDT Follow-Up [facility] Anticoagulation Clinic [address] [place] [address] Field Assistant: Lisy Varma NP [address] [place] [address] 02/24/2025 1:00 PM EST Appointment [facility] ACC Vascular Lab [address] [place] [address] 02/24/2025 2:00 PM EST Follow-Up [facility] ACC Building Vascular Surgery [address] [place] [address] Field Assistant: Joseline May MD [address] [place] [address] 03/29/2025 10:00 AM EST Follow-Up [facility] Eye [address] [address] Sebastian Oneal MD [address] [place] [address] documented as of this encounter Procedures * Due to [facility] law, this organization might not be sharing negative HIV tests. Procedure Name Priority Date/Time Associated Diagnosis Comments ILLUMINATE AORTIC ANEURYSM SCREENING 06/15/2015 2:58 PM EST documented in this encounter Results * Due to [facility] law, this organization might not be sharing negative HIV tests. * Illuminate Aortic Aneurysm Screening (06/15/2015 2:58 PM EST) Followed by Internal Vascular,Internal Vascular [facility] Aneurysm Size (cm) 4.8 cm [facility] Leak Status No Leak,No Leak IL [facility] Aneurysm Repair Status Endovascular,Endo vascular [facility] Review Date 05/14/2023 [facility] Aneurysm Location Abdominal [facility] Comments: 1 yr f/u These results were created by staff from the [facility] program, a division of vascular surgery, based on the review of an existing imaging report. [employer] [facility]ON [facility] Image Date ILLU MINATE ANALYTICS Modality CT [facility] Accession Number [id number] [facility] 06/15/2015 2:58 PM EST us Aorta Screening Illuminaadalgisa HOWARD H&V OUTSIDE STUDIE S Final Result [facility] documented in this encounter Visit Diagnoses Not on filedocumented in this encounter Additional Health Concerns Infection Onset Date Last Indicated Resolved Time COVID-19 - Suspected infection 07/06/2019 07/06/2019 07/07/2019 5:03 PM EDT documented as of this encounter Care Teams Director Retail Brand Development Relationship Specialty Start Date End Date Jolanta Morrell MD [address] [place] [address] PCP - General Family Medicine 10/28/18 documented as of this encounter
--- OUTSIDE RECORDS SUMMARY | 2024-06-01 13:52 | XMS_ITS | Encounter Summary ---
Author Organization [facility] Address [address] [place] [address] Care Team Providers Care Mineral Wool Insulation Supervisor Name Role Phone Jolanta Morrell MD Primary Care Provider +1- [phone] Encounter Details Date Type Department Care Team (Late st Contact Info) Description 10/24/2016 Orders Only [facility] Presciption Center [address] [address] Tom Daugherty MD [address] [place] [address] Social History Tobacco Use Types Packs/Day Years [...] Info) Description 08/04/2024 1:00 PM EDT Appointment [facility] Otolaryngology Clinic [address] [place] [address] Professor Of Literacy: Kal Alicea PA [address] [place] [address] 09/21/2024 1:00 PM EDT Follow-Up [facility] Anticoagulation Clinic [address] [place] [address] Professor Of Literacy: Lisy Varmat, DIGITAL ACCOUNT DIRECTOR [address] [place] [address] 02/24/2025 1:00 PM EST Appointment [facility] Vascular Lab [address] [place] [address] 02/24/2025 2:00 PM EST Follow-Up [facility] Building Vascular Surgery [address] [place] [address] Professor Of Literacy: Joseline May MD [address] [place] [address] 03/29/2025 10:00 AM EST Follow-Up [facility] Eye [address] [address] Sebastian Oneal MD [address] [place] [address] documented as of this encounter Visit Diagnoses Not on filedocumented in this encounter Additional Health Concerns Infection Onset Date Last Indicated Resolved Time COVID-19 - Suspected infection 07/06/2019 07/06/2019 07/07/2019 5:03 PM EDT documented as of this encounter Care Teams Mineral Wool Insulation Supervisor Relationship Specialty Start Date End Date Jolanta Morrell MD [address] [place] [address] PCP - General Family Medicine 10/28/18 documented as of this encounter
--- OUTSIDE RECORDS SUMMARY | 2024-06-01 13:52 | XMS_ITS | Encounter Summary ---
Author Organization [facility] Address [address] [place] [address] Care Team Providers Care Food Analyst Name Role Phone Jolanta Morrell MD Primary Care Provider +1- [phone] Reason for Visit * Reason Onset Date Comments Dose change for Lisinopril 05/12/2024 Encounter Details Date Type Department Care Team (Late st Contact Info) Description 05/12/2024 Telephone [facility] Primary Care [address] [place] [address] Jolanta Morrell MD [address] [place] [address] Dose change for Lisinopril Social History Tobacco Use Types Packs/Day Years Used Date Smoking Tobacco: Every Day Cigarettes 2 45 Smokeless Tobacco: Never Comments:2-3 ppd every day-r olls own cigarettes Alcohol Use Standard Drinks/Week Comments Not Currently 0 (1 standard drink = 0.6 oz pur e alcohol) 1982 [facility] Utilities Answer Date Recorded In the past 12 months has th e [employer], gas, oil, or water [employer] threatened to shut off services in your [...] encounter Miscellaneous Notes * Telephone Encounter - Cassie Alas - 05/12/2024 9:30 AM EST 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 He has enough supply for 3 months, please call him back if further instructions needed. documented in this encounter Plan of Treatment Upcoming Encounters Date Type Department Care Team (Late st Contact Info) Description 08/04/2024 1:00 PM EDT Appointment [facility] Otolaryngology Clinic [address] [place] [address] Torpedo Specialist: Kal Alicea PA [address] [place] [address] 09/21/2024 1:00 PM EDT Follow-Up [facility] Anticoagulation Clinic [address] [place] [address] Torpedo Specialist: Lisy Varma NP [address] [place] [address] 02/24/2025 1:00 PM EST Appointment [facility] ACC Vascular Lab [address] [place] [address] 02/24/2025 2:00 PM EST Follow-Up [facility] Building Vascular Surgery [address] [place] [address] Torpedo Specialist: Joseline May MD [address] [place] [address] 03/29/2025 10:00 AM EST Follow-Up [facility] Eye Center [address] [place] [address] Sebastian Oneal MD [address] [place] [address] documented as of this encounter Visit Diagnoses Not on filedocumented in this encounter Care Teams Food Analyst Relationship Specialty Start Date End Date Jolanta Morrell MD [address] [place] [address] PCP - General Family Medicine 10/28/18 documented as of this encounter
--- OUTSIDE RECORDS SUMMARY | 2024-06-01 13:52 | XMS_ITS | Encounter Summary ---
Author Organization [facility] Address [address] [place] [address] Care Team Providers Care Supervisor Mails Name Role Phone Jolanta Morrell MD Primary Care Provider +1- [phone] Encounter Details Date Type Department Care Team (Late st Contact Info) Description 10/21/2016 Orders Only [facility] Presciption Center [address] [address] Jolanta Morrell MD [address] [place] [address] Social History Tobacco Use Types Packs/Day Years [...] Info) Description 08/04/2024 1:00 PM EDT Appointment [facility] Otolaryngology Clinic [address] [place] [address] Warehouse Associate: Kal Alicea PA [address] [place] [address] 09/21/2024 1:00 PM EDT Follow-Up [facility] Anticoagulation Clinic [address] [place] [address] Warehouse Associate: Lisy Varmat, JACKET PREPARER [address] [place] [address] 02/24/2025 1:00 PM EST Appointment [facility] Vascular Lab [address] [place] [address] 02/24/2025 2:00 PM EST Follow-Up [facility] Building Vascular Surgery [address] [place] [address] Warehouse Associate: Joseline May MD [address] [place] [address] 03/29/2025 10:00 AM EST Follow-Up [facility] Eye [address] [address] Sebastian Oneal MD [address] [place] [address] documented as of this encounter Visit Diagnoses Not on filedocumented in this encounter Additional Health Concerns Infection Onset Date Last Indicated Resolved Time COVID-19 - Suspected infection 07/06/2019 07/06/2019 07/07/2019 5:03 PM EDT documented as of this encounter Care Teams Supervisor Mails Relationship Specialty Start Date End Date Jolanta Morrell MD [address] [place] [address] PCP - General Family Medicine 10/28/18 documented as of this encounter
--- OUTSIDE RECORDS SUMMARY | 2024-06-01 13:52 | XMS_ITS | Encounter Summary ---
Author Organization [facility] Address [address] [place] [address] Care Team Providers Care Tail Board Worker Name Role Phone Jolanta Morrell MD Primary Care Provider +1- [phone] Encounter Details Date Type Department Care Team (Late st Contact Info) Description 06/01/2024 Documentation [facility] Anticoagulation Clinic [address] [place] [address] Export Agent: Marcos Yee MD MS [address] [place] [address] Social History Tobacco Use Types Packs/Day Years Used Date Smoking Tobacco: Every Day Cigarettes 2 45 Smokeless Tobacco: Never Comments:2-3 ppd every day-r olls own cigarettes Alcohol Use Standard Drinks/Week Comments Not Currently 0 (1 standard drink = 0.6 oz pur e alcohol) 1982 [facility] Utilities Answer Date Recorded In the past 12 months has e [employer], gas, oil, or water [employer] threatened to shut off services in your [...] Notes * Marcos Art MD MS - 06/01/2024 12:00 AM EST Anticoagulation Progress Report June 01, 2024 Name: CYRUS LEWIS Reason for Treatment: Atrial fibrillation paroxysmal INR Range: 2.0-3.0 Date: 2024-06-01 08:08 Location: Anticoagulation Center, [facility] INR: 2.20 Tablet Strength: 5 mg Next INR: 7 days 2024-06-08 Progress Note: home monitor Signature Note: Assessment by Ligia Ma RN; dosage by Ligia Ma RN Provider Review/Interpretation/Management Note: INR and warfarin dosage reviewed by Lisy Madrid NP (Lisy Madrid VP TREASURER, 06/01/24 08:26) Dosage Out: :Newby-2.5mg:M-5mg:T-2.5mg:W-5mg:Th-2.5mg:F-5mg:Sa-2.5mg: documented in this encounter Plan of Treatment Upcoming Encounters Date Type Department Care Team (Late st Contact Info) Description 08/04/2024 1:00 PM EDT Appointment [facility] Otolaryngology Clinic [address] [place] [address] Export Agent: Alejandra Barnes, LEE Camacho [address] [place] [address] 09/21/2024 1:00 PM EDT Follow-Up [facility] Anticoagulation Clinic [address] [place] [address] Export Agent: Lisy Varma NP [address] [place] [address] 02/24/2025 1:00 PM EST Appointment [facility] ACC Vascular Lab [address] [place] [address] 02/24/2025 2:00 PM EST Follow-Up [facility] ACC Building Vascular Surgery [address] [place] [address] Export Agent: Joseline May MD [address] [place] [address] 03/29/2025 10:00 AM EST Follow-Up [facility] Eye Center [address] [place] [address] Sebastian Oneal MD [address] [place] [address] documented as of this encounter Visit Diagnoses Not on filedocumented in this encounter Care Teams Tail Board Worker Relationship Specialty Start Date End Date Jolanta Morrell MD [address] [place] [address] PCP - General Family Medicine 10/28/18 documented as of this encounter
--- OUTSIDE RECORDS SUMMARY | 2024-06-01 13:52 | XMS_ITS | Encounter Summary ---
Author Organization [facility] Address [address] [place] [address] Care Team Providers Care Joint Setter Name Role Phone Jolanta Morrell MD Primary Care Provider +1- [phone] Encounter Details Date Type Department Care Team (Latest Contact Info) Description 05/11/2024 External Contact [facility] Anticoagulation Clinic [address] [place], [place] [phone] Medical Coordinator Pesticide Use: Marcos Yee MD MS [address] [place] [address] Paroxysmal atrial fibrillation (HCC) (Primary Dx); roasterman (current) use of anticoagulants Social History Tobacco Use Types Packs/Day Years Used Date Smoking Tobacco: Every Day Cigarettes 2 45 Smokeless Tobacco: Never Comments:2-3 ppd every day-r olls own cigarettes Alcohol Use Standard Drinks/Week Comments Not Currently 0 (1 standard drink = 0.6 oz pur e alcohol) 1982 [facility] Utilities Answer Date Recorded In the past 12 months has th e [employer], gas, oil, or water [employer] threatened to shut off services in your [...] Info) Description 08/04/2024 1:00 PM EDT Appointment [facility] Otolaryngology Clinic [address] [place] [address] Medical Coordinator Pesticide Use: Kal Alicea PA [address] [place] [address] 09/21/2024 1:00 PM EDT Follow-Up [facility] Anticoagulation Clinic [address] [place] [address] Medical Coordinator Pesticide Use: Lisy Varma NP [address] [place] [address] 02/24/2025 1:00 PM EST Appointment [facility] ACC Vascular Lab [address] [place] [address] 02/24/2025 2:00 PM EST Follow-Up [facility] ACC Building Vascular Surgery [address] [place] [address] Medical Coordinator Pesticide Use: Joseline May MD [address] [place] [address] 03/29/2025 10:00 AM EST Follow-Up [address] [address] Sebastian Oneal MD [address] [place] [address] documented as of this encounter Visit Diagnoses Diagnosis Paroxysmal atrial fibrillation (HCC)- Primary Atrial fibrillation care home (current) use of anticoagulants Long-term (current) use of anticoagulants documented in this encounter Care Teams Joint Setter Relationship Specialty Start Date End Date Jolanta Morrell MD [address] [place] [address] PCP - General Family Medicine 10/28/18 documented as of this encounter
--- OUTSIDE RECORDS SUMMARY | 2024-06-01 13:52 | XMS_ITS | Encounter Summary ---
Author Organization [facility] Address [address] [place] [address] Care Team Providers Care Events Traffic Controller Name Role Phone Jolanta Morrell MD Primary Care Provider +1- [phone] Encounter Details Date Type Department Care Team (Late st Contact Info) Description 06/15/2015 Documentation [facility] Building Vascular Surgery [address] [place] [address] Cask Maker: Dawson Mccarty MD [address] [place] [address] Social History Tobacco Use Types Packs/Day [...] Info) Description 08/04/2024 1:00 PM EDT Appointment [facility] Otolaryngology Clinic [address] [place] [address] Cask Maker: Kal Alicea PA [address] [place] [address] 09/21/2024 1:00 PM EDT Follow-Up [facility] Anticoagulation Clinic [address] [place] [address] Cask Maker: Lisy Varma NP [address] [place] [address] 02/24/2025 1:00 PM EST Appointment [facility] ACC Vascular Lab [address] [place] [address] 02/24/2025 2:00 PM EST Follow-Up [facility] ACC Building Vascular Surgery [address] [place] [address] Cask Maker: Joseline May MD [address] [place] [address] 03/29/2025 10:00 AM EST Follow-Up [facility] Eye [address] [address] Sebastian Oneal MD [address] [place] [address] documented as of this encounter Procedures * Due to [facility] law, this organization might not be sharing negative HIV tests. Procedure Name Priority Date/Time Associated Diagnosis Comments ILLUMINATE AORTIC ANEURYSM SCREENING 06/15/2015 2:58 PM EST documented in this encounter Results * Due to [facility] law, this organization might not be sharing negative HIV tests. * Illuminate Aortic Aneurysm Screening (06/15/2015 2:58 PM EST) Followed by Internal Vascular [facility] Aneurysm Size (cm) 5.7 cm [facility] Leak Status N/A ILLUMINA TE ANALYTICS Aneurysm Repair Status Endovascular [facility] Review Date 02/04/2022 ILLUMINATE ANALYTICS Aneurysm Location Abdominal [facility]UM[facility]ATE [facility]NALYT[facility] Comments: Fiordaliza BAUM on 02/01/22- will snooze for 6m f/up with imaging These results were created by staff from the [facility] program, a division of vascular surgery, based on the review of an existing imaging report. [employer] [facility] Image Date [id number] ILLU MINATE ANALYTICS Modality OT I[facility]UM[facility]NALYT[facility] Accession Number [id number] ILLUM[facility]ATE ANALYT[facility] 06/15/2015 2:58 PM EST us Aorta Screening Cait HOWARD H&V OUTSIDE STUDIE S Final Result [facility] documented in this encounter Visit Diagnoses Not on filedocumented in this encounter Additional Health Concerns Infection Onset Date Last Indicated Resolved Time COVID-19 - Suspected infection 07/06/2019 07/06/2019 07/07/2019 5:03 PM EDT documented as of this encounter Care Teams Events Traffic Controller Relationship Specialty Start Date End Date Jolanta Morrell MD [address] [place] [address] PCP - General Family Medicine 10/28/18 documented as of this encounter
--- OUTSIDE RECORDS SUMMARY | 2024-06-01 13:52 | XMS_ITS | Encounter Summary ---
Author Organization [facility] Address [address] [place] [address] Care Team Providers Care Youth Minister Name Role Phone Jolanta Morrell MD Primary Care Provider +1- [phone] Encounter Details Date Type Department Care Team (Late st Contact Info) Description 05/11/2024 Documentation [facility] Anticoagulation Clinic [address] [place] [address] Powerhouse Electrician Apprentice: Marcos Yee MD MS [address] [place] [address] Social History Tobacco Use Types Packs/Day Years Used Date Smoking Tobacco: Every Day Cigarettes 2 45 Smokeless Tobacco: Never Comments:2-3 ppd every day-r olls own cigarettes Alcohol Use Standard Drinks/Week Comments Not Currently 0 (1 standard drink = 0.6 oz pur e alcohol) 1982 [facility] Utilities Answer Date Recorded In the past 12 months has e [employer], gas, oil, or water [employer] threatened to shut off services in your [...] Notes * Marcos Art MD MS - 05/11/2024 12:00 AM EST Anticoagulation Progress Report May 11, 2024 Name: CYRUS LEWIS Reason for Treatment: Atrial fibrillation paroxysmal INR Range: 2.0-3.0 Date: 2024-05-11 09:09 Location: Anticoagulation Center, [facility] INR: 2.20 Tablet Strength: 5 mg Next INR: 7 days 2024-05-18 Progress Note: Home monitor. Signature Note: Assessment by Mady House NP; dosage by Mady House NP Dosage Out: :[place]-2.5mg:M-5mg:T-2.5mg:W-5mg:Th-2.5mg:F-5mg:Sa-2.5mg: documented in this encounter Plan of Treatment Upcoming Encounters Date Type Department Care Team (Late st Contact Info) Description 08/04/2024 1:00 PM EDT Appointment [facility] Otolaryngology Clinic [address] [place] [address] Powerhouse Electrician Apprentice: Alejandra Barnes, LEE Camacho [address] [place] [address] 09/21/2024 1:00 PM EDT Follow-Up [facility] Anticoagulation Clinic [address] [place] [phone] Powerhouse Electrician Apprentice: Lisy Varma NP [address] [place] [address] 02/24/2025 1:00 PM EST Appointment [facility] ACC Vascular Lab [address] [place] [address] 02/24/2025 2:00 PM EST Follow-Up [facility] ACC Building Vascular Surgery [address] [place] [phone] Powerhouse Electrician Apprentice: Joseline May MD [address] [place] [address] 03/29/2025 10:00 AM EST Follow-Up [facility] Eye Center [address] [place] [address] Sebastian Oneal MD [address] [place] [address] documented as of this encounter Visit Diagnoses Not on filedocumented in this encounter Care Teams Youth Minister Relationship Specialty Start Date End Date Jolanta Morrell MD [address] [place] [phone] PCP - General Family Medicine 10/28/18 documented as of this encounter
--- OUTSIDE RECORDS SUMMARY | 2024-06-01 13:53 | XMS_ITS | Encounter Summary ---
Author Organization [facility] Address [address] [place] [address] Care Team Providers Care Ethics Officer Name Role Phone Jolanta Morrell MD Primary Care Provider +1- [phone] Encounter Details Date Type Department Care Team (Late st Contact Info) Description 12/18/2016 Patient Outreach [facility] [address] [address] Priscila Gaytan Social History Tobacco Use Types Packs/Day Years [...] Info) Description 08/04/2024 1:00 PM EDT Appointment [facility] Otolaryngology Clinic [address] [place] [address] [employer] Set Up Mechanic: Kal Alicea PA [address] [place] [address] 09/21/2024 1:00 PM EDT Follow-Up [facility] Anticoagulation Clinic [address] [place] [address] [employer] Set Up Mechanic: Lisy Vamra NP [address] [place] [address] 02/24/2025 1:00 PM EST Appointment [facility] ACC Vascular Lab [address] [place] [address] 02/24/2025 2:00 PM EST Follow-Up [facility] Building Vascular Surgery [address] [place] [address] [employer] Set Up Mechanic: Joseline May MD [address] [place] [address] 03/29/2025 10:00 AM EST Follow-Up [facility] Eye [place] [address] [place] [address] Sebastian Oneal MD [address] [place] [phone] documented as of this encounter Visit Diagnoses Not on filedocumented in this encounter Additional Health Concerns Infection Onset Date Last Indicated Resolved Time COVID-19 - Suspected infection 07/06/2019 07/06/2019 07/07/2019 5:03 PM EDT documented as of this encounter Care Teams Ethics Officer Relationship Specialty Start Date End Date Jolanta Morrell MD [address] [place] [address] PCP - General Family Medicine 10/28/18 documented as of this encounter
--- OUTSIDE RECORDS SUMMARY | 2024-06-01 13:53 | XMS_ITS | Clinical Summary ---
Author Organization [facility] Address [address] [place] [address] Care Team Providers Care Spa Host Name Role Phone Jolanta Morrell MD Primary Care Provider [phone] Allergies Active Allergy Reactions Criticality Noted Date [...] POx2d, 5T PO x2d, 4T PO x2d, 8CNKs6v, 2T PO x2d, 1T POx2d. 42 tablet [...] shortness of breath. 120 mL 5 02/20/20 24 Active levalbuterol (XOPENEX HFA) 45 mcg/actuation inhaler Inhale 2 puffs by mouth every 6 hours as needed for shortness of breath. 15 g 02/25/20 24 Active tamsulosin (FLOMAX) 0.4 mg capsule 12/22/19 Active lisinopriL (PRINIVIL,ZESTRI L) 5 mg tablet [...] (04/27/2019): Added automatically from request for surgery [id number] Tobacco abuse counseling 06/20/2017 Assessment & Plan [...] current medications. 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 Will order pre-catheterization lab testing Patient notified to hold warfarin a day prior to [facility] with possible PCI. 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 Daugherty. [facility] I have placed a request for a [...] for adrenal CA s/p laparoscopic left adrenalectomy ([place], 2015), CAD s/p PCI, active 3 pack/day [...] optimize. 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 9 Encounters Date Type Department Care Team Description 06/01/2024 Documentation [facility] [address] [place] [address] [phone] Blueprint Developer: Marcos Yee MD MS 05/28/2024 Refill [facility] Building 4th floor Cardiology Medicine [address] [place] [address] 95769 Blueprint Developer: Mini Chapman MD Allergic rhinitis 05/25/2024 Documentation [facility] [address] [place] [address] 00276 Blueprint Developer: Meryl Jovanna Marcos Sullivan MD MS 05/18/2024 External Contact [facility] [address] [place] [address] 22539 Blueprint Developer: Marcos Yee MD MS Paroxysmal atrial fibrillation (HCC) (Primary Dx); intermediate (current) use of anticoagulants 05/18/2024 Documentation [facility] [address] [place] [address] 09037 Blueprint Developer: Marcos Yee MD MS 05/17/2024 Refill [facility] 4th floor Cardiology Medicine [address] [place] [address] Blueprint Developer: Mini Chapman MD Allergic rhinitis 05/13/2024 Refill [facility] 4th floor Cardiology Medicine [address] [place] [address] Blueprint Developer: Mini Chapman MD Allergic rhinitis 05/12/2024 Telephone [facility] Primary Care [address] [place] [phone] Jolanta Morrell MD Dose change for Lisinopril 05/11/2024 External Contact [facility] [address] [place] [address] 02667 Blueprint Developer: Marcos Yee MD MS Paroxysmal atrial fibrillation (HCC) (Primary Dx); 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 05/11/2024 External Contact [facility] [address] [place] [address] 82915 Blueprint Developer: Marcos Yee MD MS Paroxysmal atrial fibrillation (HCC) (Primary Dx); 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 05/11/2024 Documentation [facility] [address] [place] [address] 44344 Blueprint Developer: Marcos Yee MD MS 05/04/2024 External Contact [facility] [address] [place] [address] 35531 Blueprint Developer: Marcos Yee MD MS Paroxysmal atrial fibrillation (HCC) (Primary Dx); 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 05/04/2024 Documentation [facility] [address] [place] [address] 14493 Blueprint Developer: Marcos Yee MD MS 05/03/2024 Telephone [facility] Primary Care [address] [place] [phone] Jolanta Morrell MD 04/27/2024 Documentation [facility] [address] [place] [address] 19392 Blueprint Developer: Marcos Yee MD MS 04/20/2024 External Contact [facility] [address] [place] [address] 46227 Blueprint Developer: Marcos Yee MD MS Paroxysmal atrial fibrillation (HCC) (Primary Dx); 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 04/20/2024 Documentation [facility] [address] [place] [address] 43202 Blueprint Developer: Marcos Yee MD MS 04/13/2024 Documentation [facility] [address] [place] [address] 65584 Blueprint Developer: Marcos Yee MD MS 04/09/2024 Refill [facility] Primary Care [address] [place] [phone] Jolanta Morrell MD 04/06/2024 External Contact [facility] [address] [place] [address] 14312 Blueprint Developer: Marcos Yee MD MS Paroxysmal atrial fibrillation (HCC) (Primary Dx); intermediate (current) use of anticoagulants 04/06/2024 Documentation [facility] [address] [place] [address] 91594 Blueprint Developer: Marcos Yee MD MS 03/30/2024 External Contact [facility] [address] [place] [address] 07653 Blueprint Developer: Marcos Yee MD MS Paroxysmal atrial fibrillation (HCC) (Primary Dx); intermediate (current) use of anticoagulants 03/30/2024 Documentation [facility] [address] [place] [address] 37156 Blueprint Developer: Marcos Yee MD MS 03/25/2024 10:00 AM EST Follow-Up [facility] [address] [place] [address] 22152 Sebastian Oneal MD Age-related nuclear cataract of both eyes (Primary Dx); Hypertensive retinopathy of both eyes; Choroidal nevus, left eye; Type 2 diabetes mellitus without retinopathy (CMS/HCC) (HCC); Tortuous retinal veins; PVD (posterior vitreous detachment), right eye 03/24/2024 Telephone [facility] Care [address] [place] [phone] Jolanta Morrell MD 03/23/2024 External Contact [facility] [address] [place] [address] 56643 Blueprint Developer: Marcos Yee MD MS Paroxysmal atrial fibrillation (HCC) (Primary Dx); intermediate (current) use of anticoagulants 03/23/2024 Documentation [facility] [address] [place] [address] 60855 Blueprint Developer: Marcos Yee MD MS 03/18/2024 1:00 PM EST Follow-Up [facility] 4th floor Cardiology Medicine [address] [place] [address] 29114 Blueprint Developer: Mini Chapman MD Paroxysmal atrial fibrillation 03/16/2024 Documentation [facility] [address] [place] [address] 65746 Blueprint Developer: Marcos Yee MD MS 03/09/2024 Documentation [facility] [address] [place] [address] 92002 Blueprint Developer: Marcos Yee MD MS 03/02/2024 External Contact [facility] [address] [place] [address] 12107 Blueprint Developer: Marcos Yee MD MS Paroxysmal atrial fibrillation (HCC) (Primary Dx); 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 03/02/2024 Documentation [facility] [address] [place] [address] 77033 Blueprint Developer: Marcos Yee MD MS 03/01/2024 Orders Only [facility] Care [address] [place] [phone] Jolanta Morrell MD Examination (Primary Dx) 03/01/2024 Telephone [facility] [address] [place] [phone] Niesha Galindo MA from Last 3 Months Immunizations Immunization Administration Dates Next Due COVID-19, Pfizer, mRNA, Biva lent Booster, PF, 30 mcg/0.3 mL dose (for age 12 y and up) 02/25/2022 Covid-19 Monovalent Vaccine, Moderna, mRNA, PF 11/20/2020,07/12/2020,06/13/2020 INFLUENZA, SPLIT VIRUS, TRIVALENT, PF 12/28/2015 ,12/23/2014 Influenza, Injectable, [place]in [place] Canine Kidney, Preservative Free, Quadrivalent 02/03/2023,12/31/2021,12/17/2016 Influenza, [...] Toxoid, and Acellular Pertussis Vaccine, Adsorbed 01/11/2019 Family History Medical History Relation Name Comments Other Father TBI Heart failure Mother Kidney disease Mother Cancer Mother's Brother unknown tyo e of cancer Cancer Mother's Sister unknown age of diagnosis Other Other 1 Family history of CAD (coronary artery disease) Other Other 2 Family History of early CAD Cancer Sister unknown type of cancer Relation Name Status Comments Father (Age 58) of he ad injury Mother Not sure of age at , 60-70 yrs Mother's Brother Mother's Sister Other 1 Other 2 Sister Social History Tobacco Use Types Packs/Day Years Used Date Smoking Tobacco: Every Day Cigarettes 2 45 Smokeless Tobacco: Never Tobacco Cessation:Ready to Q uit: Not Asked; Counseling Given: Not Answered Comments:2-3 ppd every day-rolls own cigarettes Alcohol Use Standard Drinks/Week Comments Not Currently 0 (1 standard drink = 0.6 oz pur e alcohol) 1982 [facility] Utilities Answer Date Recorded In [...] Mass Index 31.12 03/18/2024 1:02 PM EST Plan of Treatment Upcoming Encounters Date Type Department Care Team (Late st Contact Info) Description 08/04/2024 1:00 PM EDT Appointment [facility] [address] [place] [address] 20236 Blueprint Developer: Kal Alicea PA [address] [place] [address] 09/21/2024 1:00 PM EDT Follow-Up [facility] [address] [place] [address] 22467 Blueprint Developer: Lisy Varma NP [address] [place] [address] 02/24/2025 1:00 PM EST Appointment [facility] [address] [place] [address]18[address] 02/24/2025 2:00 PM EST Follow-Up [facility] Building Vascular Surgery [address] [place] [address] 36610 Blueprint Developer: Joseline May MD [address] [place] [address] 03/29/2025 10:00 AM EST Follow-Up [facility] [address] [place] [address] [phone] Sebastian Oneal MD [address] [place] [address] 48848 Health Maintenance Due Date Last Done Comments Zoster Vaccines (1 of 2) 02/06/2010 COVID-19 Vaccine ( season) 2023 02/25/2022, 11/20/2020, 07/12/2020, Additional history exists Pneumococcal Vaccine: 50+ Years (3 of 3 - PCV20 or PCV21) 01/12/2024 01/11/2019, 12/23/2014 Alcohol/Substance Use Screening 04/07/2024 Depression Screening and Follow-Up 04/07/2024 12/11/2023 Social Drivers of Health Annual Screening 04/07/2024 02/02/2024 CT Lung Cancer Screening (12 months, previous LungRADS 1 or 2) 06/02/2024 06/02/2023, 03/25/2022, 10/04/2021, Additional history exists Hemoglobin A1C 08/02/2024 02/02/2024, 04/07, 12/06/2022, Additional history exists Basic Metabolic Panel 02/01/2025 02/02/2024 , 02/02/2024, 08/08/2023, Additional history exists Urine Microalbumin 02/01/2025 02/02/2024, 1 04/08/2022, 08/14/2021, Additional history exists Ophthalmology Exam 03/25/2025 03/25/2024, 1 05/26/2023, 03/25/2024, Additional history exists Colonoscopy 06/17/2026 06/18/2023, 06/05, 09/15/2015, Additional history exists DTaP,Tdap,and Td Vaccines (2 - Td or Tdap) 01/11/2029 01/11/2019 Tobacco Screening 04/07/2042 03/25/2024 HIV Screening Completed 07/16/2018 Hepatitis C Screening Completed 07/16/2018 RSV Vaccine (60+ years old and patients) Completed 02/03/2023 Influenza Vaccine Completed 02/02/2024, , 12/31/2021, Additional history exists Statin Therapy Completed 02/02/2024 Abdominal Aortic Aneurysm (AAA) Screening Completed 02/26/2024, 02/26/2024, 12/11/2023, Additional history exists Hepatitis B Vaccines Aged Out No long er eligible based on patient's age to complete this topic Medical Devices Implanted Type Area Orthopedic Physical Therapist Device Identifier Shelf Expiration Date Model / Serial / Lot Graft Endovascular Aaa Bifurcated Main Body [id number] Zenith Flex - [id number] Implanted:Qty: 1 on 02/01/2022 by Joseline Mancera MD at [facility] Graft Aorta [employer] 06/06/2023 [id number] / / [id number] Description:Abdominal aorta Graft Endovascular Iliac Leg Aaa [id number] Zenith Spiral-Z - [id number] Implanted:Qty: 1 on 02/01/2022 by Joseline Mancera MD at [facility] Graft [employer] [facility] 12/06/2024 [id number] / / [id number] Description:Left iliac Graft Endovascular Iliac Leg Aaa [id number] Zenith Spiral-Z - [id number] Implanted:Qty: 1 on 02/01/2022 by Joseline Mancera MD at [facility] Graft [employer] 03/13/2023 [id number] / / [id number] Description:Left iliac Graft Endovascular Iliac Leg Aaa [id number] Zenith Spiral-Z - [id number] Implanted:Qty: 1 on 02/01/2022 by Joseline Mancera MD at [facility] Graft [employer] 01/14/2025 [id number] / / [id number] Description:Right iliac System Closure And Repair Suture-Mediated Perclose Prostyle - [id number] Implanted:Qty: 2 on 02/01/2022 by Joseline Mancera MD at [facility] Implant Right: Groin [employer] 11/05/2023 [id number] / / [id number] System Closure And Repair Suture-Mediated Perclose Prostyle - [id number] Implanted:Qty: 2 on 02/01/2022 by Joseline Mancera MD at [facility] Implant Left: Groin [employer] 11/05/2023 [id number] / [id number] Procedures * Due to [place] state law, this organization might not be [...] to Health Maintenance Results * Due to [place] state law, this organization might not be sharing negative HIV tests. * ECG 12 lead (03/18/2024 1:08 PM EST) Ventricular Rate EKG 74 BPM MUSE EKG Atrial Rate 74 BPM MUSE EKG TX Interval 180 ms MUSE EKG QRS Interval 84 ms MUSE EKG QT Interval 400 ms MUSE EKG QTC Interval 444 ms MUSE EKG P Zaleski 51 degrees MUSE EKG R Zaleski 43 degrees MUSE EKG T Wave Zaleski 62 degrees MUSE EKG 03/18/2024 1:08 PM EST 03/19/2024 5:00 PM EST Impressions MUSE EKG - 03/19/2024 5:00 PM EST SINUS RHYTHM Confirmed by Slade Vallejo ([id number]) on 03/19/2024 5:00:11 PM Kal Posada MD ECG ORDERABLES Final Result Performing Organization Address City/[facility]/ZIP Co de Phone Number MUSE EKG * (ABNORMAL) Hemoglobin A1c (02/02/2024 12:11 PM EDT) Hemoglobin A1C 7.1(H) <5.7 % of total Hgb 02/03/2024 3:42 AM EDT [facility] Comment: For someone without known diabetes, a [...] (MG/DL) 157 mg/dL 02/03/2024 3:42 AM EDT [facility] eAG (MMOL/L) 8.7 mmol/L 02/03/2024 3:42 AM EDT [facility] Blood Structure of peripheral vein / Unknown 02/02/2024 12:11 PM EDT 02/03/2024 2:12 AM EDT Narrative [facility] - 02/03/2024 5:45 AM EDT SPECIMEN COLLECTED AT PROVIDER OFFICE. Jolanta Morrell MD LAB BLOOD ORDERABLES Final Result Performing Organization Address City/[facility]/ZIP Co de Phone Number [facility] [address] [facility] 3rd Floor, [place] [address], [facility] [address] [place] [address] * (ABNORMAL) Comprehensive Metabolic Panel (02/02/2024 12:11 PM EDT) Glucose 96 65 - 99 mg/dL 02/03/2024 5:40 AM EDT [facility] Comment: ? Fasting reference interval BUN 17 7 - 25 mg/dL 02/03/2024 5:40 AM [facility] Creatinine 0.72 0.70 - 1.35 mg/dL 02/03/2024 5:40 AM [facility] eGFR 103 > OR = 60 mL/min/1. 73m2 02/03/2024 5:40 AM [facility] Bun/Creatinine Ratio SEE NOTE: 6 - 22 (calc) 02/03/2024 5:40 AM [facility] Comment: ?? Not Reported: BUN and Creatinine are within ?? reference range. ? Sodium 140 135 - 146 mmol/L 02/03/2024 5:40 AM [facility] Potassium 4.2 3.5 - 5.3 mmol/L 02/03/2024 5:40 AM [facility] Chloride 102 98 - 110 mmol/L 02/03/2024 5:40 AM [facility] Carbon Dioxide 33(H) 20 - 32 mmol/L 02/03/2024 5:40 AM [facility] Calcium 9.5 8.6 - 10.3 mg/dL 02/03/2024 5:40 AM [facility] Protein, Total 6.8 6.1 - 8.1 g/dL 02/03/2024 5:40 AM [facility] Albumin 4.6 3.6 - 5.1 g/dL 02/03/2024 5:40 AM [facility] Globulin 2.2 1.9 - 3.7 g/dL (calc) 02/03/2024 5:40 AM [facility] Albumin/Globuli n Ratio 2.1 1.0 - 2.5 (calc) 02/03/2024 5:40 AM [facility] Bilirubin, Total 0.3 0.2 - 1.2 mg/dL 02/03/2024 5:40 AM [facility] Alkaline Phosphatase 119 35 - 144 U/L 02/03/2024 5:40 AM [facility] AST 21 10 - 35 U/L 02/03/2024 5:40 AM [facility] ALT 28 9 - 46 U/L 02/03/2024 5:40 AM [facility] Blood Structure of peripheral vein / Unknown 02/02/2024 12:11 PM EDT 02/03/2024 3:06 AM EDT Narrative [facility] - 02/03/2024 5:45 AM EDT SPECIMEN COLLECTED AT PROVIDER OFFICE. us Jolanta Morrell MD LAB BLOOD ORDERABLES Final Result Performing Organization Address City/[facility]/ZIP Co de Phone Number [facility] [address], [place] [address], [place] [phone] [facility] [address] [place] [address] * (ABNORMAL) Microalbumin, Random Urine with Creatinine (02/02/2024 12:00 AM EDT) Creatinine, Random Urine 140 20 - 320 mg/dL 02/03/2024 4:28 PM EDT [facility] Microalbumin 5.0 mg/dL 02/03/2024 4:28 PM EDT [facility] Comment: Reference Range Not established Microalbumin/Crea tinine Ratio, Random Urine 36(H) <30 mg/g creat 02/03/2024 4:28 PM EDT [facility] Comment: The ADA defines abnormalities in albumin [...] URINE ORDERABLES Final Result Performing Organization Address City/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 Lisy Gentile, 06/18/2023 3:25:35 PM This report [...] obtain the completed interpretation. ? Workstation ID: [id number] Up-to-date CT equipment and radiation dose reduction [...] Mild degenerative vertebral disease. Resulting Agency Comment [id number] Procedure Note Karson Forrester MD PhD - [...] possible to obtain thecompleted interpretation. Workstation ID: [id number] Up-to-date CT equipment and radiation dose reduction techniques wereemployed. CTDIvol: 3.3 mGy. DLP: 120 mGy-cm. us Jolanta Morrell MD IMG CT PROCEDURES Final [...] obtain the completed interpretation. ? Workstation ID: [id number] Up-to-date CT equipment and radiation dose reduction techniques were employed. CTDIvol: 1.4 - 18.2 mGy. DLP: 3187 mGy-cm.The following accession numbers are related to this dose report [id number] [facility] 03/26/2022 11:24 AM EST EXAMINATION: CT ANGIOGRAM [...] Soft tissues are unremarkable. Resulting Agency Comment [id number] Procedure Note Frantz Squires MD - 03/26/2022 [...] possible to obtain thecompleted interpretation. Workstation ID: [id number] Up-to-date CT equipment and radiation dose reduction techniques wereemployed. CTDIvol: 1.4 - 18.2 mGy. DLP: 3187 mGy-cm.The followingaccession numbers are related to this dose report [id number] Joseline Mancera MD [facility] [place] PROCEDURES Final Resul t * Hepatitis C Antibody w/Reflex to PCR (07/16/2018 10:38 AM EDT) Hepatitis C Antibody NON-REACT ALY NON-REACT ALY 07/16/2018 7:28 PM EDT [facility] Signal To Cut-Off 0.01 <1.00 07/16/2018 7:28 PM EDT [facility] Comment: HCV antibody was non-reactive. There is no laboratory evidence of HCV infection. In most cases, no further action is required. However, if recent HCV exposure is suspected, a test for HCV RNA (test code 19346) is suggested. For additional information please refer to http://education.V-Key/faq/CTZ20s9 (This link is being provided for informational/ educational purposes only.) Blood specimen (specimen) Structure of peripheral vein / Unknown 07/16/2018 10:38 AM EDT 07/16/2018 3:17 PM EDT Jolanta Morrell MD LAB BLOOD ORDERABLES Final Result [facility] [address] [facility] [address], [place] [address], [facility] [address] [place] [address] from Last 3 Months or Most Recently Relevant to Health Maintenance Insurance MEDICARE [facility] Advance Directives * Full Code (Latest Code [...] 1:41 AM 05/02/2020 4:14 PM Care Teams Spa Host Relationship Specialty Start Date End Date Jolanta Morrell MD [address] [place] [phone] PCP - General Family Medicine 10/28/18
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
--- OUTSIDE RECORDS SUMMARY | 2024-06-01 13:53 | XMS_ITS | Encounter Summary ---
Author Organization [facility] Address [address] [place] [address] Care Team Providers Care Marine Electrician Name Role Phone Jolanta Morrell MD Primary Care Provider +1- [phone] Encounter Details Date Type Department Care Team (Late st Contact Info) Description 11/03/2021 Orders Only [facility] XRay [address] [place], [place] [phone] Yuki Roche MD [address] [place] [address] Social History Tobacco Use Types Packs/Day [...] Info) Description 08/04/2024 1:00 PM EDT Appointment [facility] Otolaryngology Clinic [address] [place] [address] [phone] Distribution Lineman: Alejandra BarnesKal PA [address] [place] [phone] 09/21/2024 1:00 PM EDT Follow-Up [facility] Anticoagulation Clinic [address] [place] [phone] Distribution Lineman: Lisy Varma NP [address] [place] [address] 02/24/2025 1:00 PM EST Appointment [facility] ACC Vascular Lab [address] [place] [address] 02/24/2025 2:00 PM EST Follow-Up [facility] ACC Building Vascular Surgery [address] [place] [phone] Distribution Lineman: Joseline May MD [address] [place] [phone] 03/29/2025 10:00 AM EST Follow-Up [facility] Eye Center [address] [place] [address] Sebastian Oneal MD [address] [place] [phone] documented as of this encounter Visit Diagnoses Not on filedocumented in this encounter Care Teams Marine Electrician Relationship Specialty Start Date End Date Jolanta Morrell MD [address] [place] [phone] PCP - General Family Medicine 10/28/18 documented as of this encounter
--- OUTSIDE RECORDS SUMMARY | 2024-06-01 13:53 | XMS_ITS | Encounter Summary ---
Author Organization [facility] Address [address] [place] [address] Care Team Providers Care Microsoft Exchange Architect Name Role Phone Jolanta Morrell MD Primary Care Provider +1- [phone] Encounter Details Date Type Department Care Team (Late st Contact Info) Description 11/28/2016 Orders Only [facility] Presciption Center [address] [address] Tom Daugherty MD [address] [place] [address] Social History Tobacco Use Types Packs/Day Years [...] Description 08/04/2024 1:00 PM EDT Appointment [facility] Otolaryngology Clinic [address] [place] [address] Rod Pointer: Kal Alicea PA [address] [place] [address] 09/21/2024 1:00 PM EDT Follow-Up [facility] Anticoagulation Clinic [address] [place] [address] Rod Pointer: Lisy Varmat, FACULTY ADMINISTRATOR [address] [place] [address] 02/24/2025 1:00 PM EST Appointment [facility] Vascular Lab [address] [place] [address] 02/24/2025 2:00 PM EST Follow-Up [facility] Building Vascular Surgery [address] [place] [address] Rod Pointer: Joseline May MD [address] [place] [address] 03/29/2025 10:00 AM EST Follow-Up [facility] Eye [address] [address] Sebastian Oneal MD [address] [place] [address] documented as of this encounter Visit Diagnoses Not on filedocumented in this encounter Additional Health Concerns Infection Onset Date Last Indicated Resolved Time COVID-19 - Suspected infection 07/06/2019 07/06/2019 07/07/2019 5:03 PM EDT documented as of this encounter Care Teams Microsoft Exchange Architect Relationship Specialty Start Date End Date Jolanta Morrell MD [address] [place] [phone] PCP - General Family Medicine 10/28/18 documented as of this encounter
== END 2024-06-01 11:50 | disposition home or self-care (01) ==
PROVIDERS: Visit Provider Surgery Vascular Surgery
DX: I71.43 Infrarenal abdominal aortic aneurysm, without rupture (principal); I73.9 Peripheral vascular disease, unspecified
CPT/HCPCS: 99214

== ENCOUNTER → 2024-06-01 11:19 | Outpatient (BNVA) | payer MEDICARE, MEDICAID, SELFPAY | PROVIDERS: Visit Provider Surgery Vascular Surgery | DX: I71.43 Infrarenal abdominal aortic aneurysm, without rupture (principal); I73.9 Peripheral vascular disease, unspecified | CPT/HCPCS: 99212 ==